=== PATIENT | female | born 1955 | race Caucasian/White ===

== ENCOUNTER → 2017-10-31 18:17 | Outpatient (CLI) | payer OTHER, SELFPAY ==
--- NOTE | 2017-10-31 18:17 | DT_ITS ---
This patient was seen during an EMR downtime October 28, 2017 - November 04, 2017. This patient may have a combination of paper and electronic documentation or all paper documentation. All documentation is viewable within the e-chart portion of [facility] for each patient visit.
== END ==
PROVIDERS: Visit Provider Nurse Practitioner Women's Health
DX: N76.0 Acute vaginitis (principal); R30.0 Dysuria
CPT/HCPCS: 87070; 87086; 87205

== ENCOUNTER → 2017-11-22 14:00 | Outpatient (CLI) | payer OTHER, SELFPAY ==
[2017-11-28 16:13] LABS: HPV APTIMA, High Risk Negative (Negative)
== END ==
PROVIDERS: Family Provider Family Medicine; PCP Family Medicine; Visit Provider Nurse Practitioner Women's Health
DX: Z12.4 Encounter for screening for malignant neoplasm of cervix (principal)
CPT/HCPCS: 88175; G0145

== ENCOUNTER → 2017-12-05 08:20 | Outpatient (CLI) | payer OTHER, SELFPAY ==
--- NOTE | 2017-12-05 08:22 | US_ITS ---
STUDY: ULTRASOUND OF THE FEMALE PELVIS - COMPLETE REASON FOR EXAM: Female, 62 years old. Pelvic pain. LMP: The patient is postmenopausal. TECHNIQUE: Transabdominal and Transvaginal TECHNICAL QUALITY: Adequate. COMPARISON: None. FINDINGS: The uterus is anteverted and is in a midline position. The uterus measures 6.2 cm x 3.8 cm x 2.4 cm. There is a Nabothian cyst of the cervix. The endometrium measures 2.0 mm in thickness, and is hyperechoic. There is no demonstrated endometrial mass. There is no demonstrated myometrial mass. Tiny calcifications are seen in the cervix. This may represent fibroid change. Heterogeneous appearance of the myometrium suggestive of a fibroid change of the luminal focal fibroid is seen. I.U.D. - The patient does not have an I.U.D. The right ovary is visualized. The right ovary measures 2.4 cm x 1.5 cm x 1.3 cm. There is no right ovarian cyst or ovarian mass. There is no visualized right adnexal mass or complex lesion. There is normal arterial and normal venous vascularity. The left ovary is visualized. The left ovary measures 1.6 cm x 1.2 cm x 1.3 cm. There is no left ovarian cyst or ovarian mass. There is no visualized left adnexal mass or complex lesion. There is normal arterial and normal venous vascularity. There is no fluid in the cul-de-sac. Polycystic ovary disease: No. US/Transvaginal Non- IMPRESSION: Findings suggestive of fibroid change within the uterus and cervix. Electronically Signed: Yung Lo MD at 13:01 EDT Tel [phone], Service support ,
--- NOTE | 2017-12-05 08:22 | US_ITS ---
STUDY: ULTRASOUND OF THE FEMALE PELVIS - COMPLETE REASON FOR EXAM: Female, 62 years old. Pelvic pain. LMP: The patient is postmenopausal. TECHNIQUE: Transabdominal and Transvaginal TECHNICAL QUALITY: Adequate. COMPARISON: None. FINDINGS: The uterus is anteverted and is in a midline position. The uterus measures 6.2 cm x 3.8 cm x 2.4 cm. There is a Nabothian cyst of the cervix. The endometrium measures 2.0 mm in thickness, and is hyperechoic. There is no demonstrated endometrial mass. There is no demonstrated myometrial mass. Tiny calcifications are seen in the cervix. This may represent fibroid change. Heterogeneous appearance of the myometrium suggestive of a fibroid change of the luminal focal fibroid is seen. I.U.D. - The patient does not have an I.U.D. The right ovary is visualized. The right ovary measures 2.4 cm x 1.5 cm x 1.3 cm. There is no right ovarian cyst or ovarian mass. There is no visualized right adnexal mass or complex lesion. There is normal arterial and normal venous vascularity. The left ovary is visualized. The left ovary measures 1.6 cm x 1.2 cm x 1.3 cm. There is no left ovarian cyst or ovarian mass. There is no visualized left adnexal mass or complex lesion. There is normal arterial and normal venous vascularity. There is no fluid in the cul-de-sac. Polycystic ovary disease: No. US/Pelvic (Non ) IMPRESSION: Findings suggestive of fibroid change within the uterus and cervix. Electronically Signed: Yung Lo MD at 13:01 EDT Tel [phone], Service support ,
== END ==
PROVIDERS: Family Provider Family Medicine; PCP Family Medicine; Visit Provider Nurse Practitioner Women's Health
DX: N95.2 Postmenopausal atrophic vaginitis (principal)
CPT/HCPCS: 76830; 76856; 93976

== ENCOUNTER → 2018-01-30 14:44 | Outpatient (CLI) | payer OTHER, SELFPAY | PROVIDERS: Family Provider Family Medicine; PCP Family Medicine; Visit Provider Nurse Practitioner Women's Health | DX: Z12.31 Encounter for screening mammogram for malignant neoplasm of breast (principal) | CPT/HCPCS: 77063; 77067 ==

== ENCOUNTER → 2019-02-02 | Outpatient (CLI) | payer OTHER, SELFPAY ==
--- NOTE | 2019-02-02 10:18 | BI_ITS ---
MAMMOGRAPHY - BILATERAL SCREENING REASON FOR EXAM: Female, 63 years old. Routine annual screening examination. PERTINENT HISTORY: Non-contributory. Left breast tenderness. TECHNIQUE: Digital bilateral breast eliazar (3D mammographic acquisition) in the CC and MLO projections. 2-D mediolateral oblique (MLO) and craniocaudad (CC) views of both breasts were obtained. CAD: Full Field Digital Mammography with Computer Added Detection was performed. COMPARISON: Comparison is made with prior study dated January 30, 2018 and April 05, 2016. FINDINGS: Breast Composition: There are scattered areas of fibroglandular density. There are no dominant masses or suspicious calcifications. Stable benign-appearing bilateral axillary lymph nodes. No other significant abnormalities are identified. There has been no significant change since the prior study. BI/SCREEN MAMM (CAD) W/ELIAZAR BILAT IMPRESSION: Stable bilateral screening mammogram. Yearly follow-up mammogram recommended. (A) ASSESSMENT CATEGORY: BIRADS Category 2: Benign. A letter regarding these results will be sent to the patient by the facility within 30 days. Approximately 10% of breast cancers are not detected by mammography. A normal mammogram should not delay biopsy of a clinically suspicious abnormality. [id number] Electronically Signed: Yung Lo, at 12:24 EDT , Service support ,
== END | disposition home or self-care (01) ==
LOC: OPBI 10:16
PROVIDERS: Family Provider Family Medicine; PCP Family Medicine; Referring Provider Nurse Practitioner Women's Health; Visit Provider Nurse Practitioner Women's Health
DX: Z12.31 Encounter for screening mammogram for malignant neoplasm of breast (principal)
CPT/HCPCS: 77063; 77067

== ENCOUNTER → 2020-02-05 | Outpatient (CLI) | payer OTHER, SELFPAY ==
[2019-05-25 12:00] VITALS: BMI 25.1
--- NOTE | 2020-02-05 13:50 | BI_ITS ---
MAMMOGRAPHY - BILATERAL SCREENING REASON FOR EXAM: Female, 64 years old. Routine annual screening examination. PERTINENT HISTORY: Non-contributory. TECHNIQUE: Digital bilateral breast eliazar (3D mammographic acquisition) in the CC and MLO projections. 2-D mediolateral oblique (MLO) and craniocaudad (CC) views of both breasts were obtained. CAD: Full Field Digital Mammography with Computer Added Detection was performed. COMPARISON: Comparison is made with prior examination dated 02/02/2019 and 01/30/2018. FINDINGS: Breast Composition: There are scattered areas of fibroglandular density. There are no dominant masses or suspicious calcifications. Stable small benign appearing bilateral axillary lymph nodes. No other significant abnormalities are identified. BI/SCREEN MAMM (CAD) W/ELIAZAR BILAT IMPRESSION: Stable bilateral screening mammogram. Yearly follow-up mammogram recommended. (A) ASSESSMENT CATEGORY: BIRADS Category 2: Benign. A letter regarding these results will be sent to the patient by the facility within 30 days. Approximately 10% of breast cancers are not detected by mammography. A normal mammogram should not delay biopsy of a clinically suspicious abnormality. [id number] Electronically Signed: Yung Lo, at 14:46 EDT , Service support ,
== END | disposition home or self-care (01) ==
LOC: OPBI 13:50
PROVIDERS: PCP Family Medicine; Referring Provider Obstetrics & Gynecology; Visit Provider Obstetrics & Gynecology
DX: Z12.31 Encounter for screening mammogram for malignant neoplasm of breast (principal)
CPT/HCPCS: 77063; 77067

== ENCOUNTER → 2021-02-06 10:59 | Outpatient (CLI) | payer OTHER, SELFPAY ==
[2020-05-26 11:51] VITALS: BMI 25.6
--- NOTE | 2021-02-06 11:01 | BI_ITS ---
MAMMOGRAPHY - BILATERAL SCREENING REASON FOR EXAM: Female, 65 years old. Routine annual screening examination. PERTINENT HISTORY: Non-contributory. TECHNIQUE: Digital bilateral breast eliazar (3D mammographic acquisition) in the CC and MLO projections. 2-D mediolateral oblique (MLO) and craniocaudad (CC) views of both breasts were obtained. CAD: Full Field Digital Mammography with Computer Added Detection was performed. COMPARISON: Comparison is made with prior study dated 02/05/2020 and 02/02/2019. FINDINGS: Breast Composition: There are scattered areas of fibroglandular density. There are no dominant masses or suspicious calcifications. Stable benign appearing bilateral axillary lymph nodes. No other significant abnormalities are identified. There has been no significant change since the prior study. BI/SCRN MAMM (CAD)W/ELIAZAR BILAT IMPRESSION: Stable bilateral screening mammogram. Yearly follow-up mammogram recommended. (A) ASSESSMENT CATEGORY: BIRADS Category 2: Benign. A letter regarding these results will be sent to the patient by the facility within 30 days. Approximately 10% of breast cancers are not detected by mammography. A normal mammogram should not delay biopsy of a clinically suspicious abnormality. [id number] Electronically Signed: Yung Lo MD at 11:55 EDT , Service support ,
== END ==
PROVIDERS: PCP Family Medicine; Referring Provider Nurse Practitioner Women's Health; Visit Provider Nurse Practitioner Women's Health
DX: Z12.31 Encounter for screening mammogram for malignant neoplasm of breast (principal)
CPT/HCPCS: 77063; 77067

== ENCOUNTER 2021-09-05 15:52 | Outpatient (CLI) | payer OTHER, SELFPAY | END 2021-09-05 23:59 | disposition home or self-care (01) | PROVIDERS: PCP Family Medicine; Referring Provider Nurse Practitioner Women's Health; Visit Provider Nurse Practitioner Women's Health | DX: R30.9 Painful micturition, unspecified (principal); N95.2 Postmenopausal atrophic vaginitis | CPT/HCPCS: 87070; 87086; 87088; 87205 ==

== ENCOUNTER → 2021-10-05 | Outpatient (CLI) | payer OTHER, SELFPAY | END | disposition home or self-care (01) | LOC: LABSPEC 15:27 | PROVIDERS: PCP Family Medicine; Referring Provider Nurse Practitioner Women's Health; Visit Provider Nurse Practitioner Women's Health | DX: R30.0 Dysuria (principal) | CPT/HCPCS: 87086; 87088 ==

== ENCOUNTER → 2021-10-13 | Outpatient (CLI) | payer OTHER, SELFPAY ==
[2021-10-13 18:14] LABS: Bacteria 0 SEEN /hpf (None Seen); Mucous, Urine 0 SEEN /hpf (<or=2+); Red Blood Cells-Urine 0 SEEN /hpf (0-5)
[2021-10-13 18:59] LABS: Color, Urine Yellow (Yellow); Glucose, Dipstick Normal (Normal); Ketone-Dipstick Negative (Negative); Leukocyte Esterase-Dipstick 25 /ul (Negative); Nitrite-Dipstick Negative (Negative); Occult Blood-Urine Negative /ul (Negative); Protein-Dipstick Negative (Negative); Specific Gravity, Urine 1.005 (1.002-1.030); Urine Bilirubin Dipstick Negative (Negative); Urine Clarity Clear (Clear); Urine Urobilinogen Normal (Normal)
[2021-10-13 19:09] LABS: Squamous Epithelial Cells - UA 0-5 SEEN /hpf (5-10); White Blood Cells 0-5 SEEN /hpf (0-5)
== END | disposition home or self-care (01) ==
PROVIDERS: PCP Family Medicine; Visit Provider Physician Assistant Surgical
DX: N39.0 Urinary tract infection, site not specified (principal)
CPT/HCPCS: 81001; 87086; 87088

== ENCOUNTER → 2021-12-18 | Outpatient (CLI) | payer OTHER, SELFPAY ==
[2021-12-18 16:01] LABS: NATERA MAILED SPECIMEN
== END | disposition home or self-care (01) ==
LOC: LAB 14:55
PROVIDERS: PCP Family Medicine; Visit Provider Obstetrics & Gynecology
DX: Z15.09 Genetic susceptibility to other malignant neoplasm (principal)
CPT/HCPCS: 36415

== ENCOUNTER → 2021-12-21 | Outpatient (CLI) | payer OTHER, SELFPAY ==
--- NOTE | 2021-12-21 08:15 | US_ITS ---
STUDY: ULTRASOUND OF THE FEMALE PELVIS - COMPLETE REASON FOR EXAM: Female, 66 years old. Pelvic pain. Preop for hysterectomy. LMP: Patient is postmenopausal. TECHNIQUE: Transabdominal and Transvaginal TECHNICAL QUALITY: Adequate. COMPARISON: Comparison is made with prior study dated 12/05/2017. FINDINGS: The uterus is anteverted and is in a midline position. The uterus measures 6.7 cm x 4 cm x 2.4 cm. Normal uterine cervix. The endometrium measures 2 mm in thickness, and is hyperechoic. There is no demonstrated endometrial mass. Heterogeneous appearance of the myometrium suggestive of fibrotic changes although no focal fibroid is seen. I.U.D. - The patient does not have an I.U.D. The right ovary is visualized. The right ovary measures 2.1 cm x 1.5 cm x 1.6 cm. There is no right ovarian cyst or ovarian mass. There is no visualized right adnexal mass or complex lesion. There is normal arterial and normal venous vascularity. The left ovary is visualized. The left ovary measures 1.8 cm x 2.7 cm x 1 cm. There is no left ovarian cyst or ovarian mass. There is no visualized left adnexal mass or complex lesion. There is normal arterial and normal venous vascularity. There is no fluid in the cul-de-sac. The pre void volume of the bladder was 588 ml. US/Pelvic (Non ) IMPRESSION: Heterogeneous appearance of the myometrium suggestive of fibroid changes although no focal fibroid is seen. Electronically Signed: Yung Lo MD at 14:08 EDT ,
--- NOTE | 2021-12-21 08:15 | US_ITS ---
STUDY: ULTRASOUND OF THE FEMALE PELVIS - COMPLETE REASON FOR EXAM: Female, 66 years old. Pelvic pain. Preop for hysterectomy. LMP: Patient is postmenopausal. TECHNIQUE: Transabdominal and Transvaginal TECHNICAL QUALITY: Adequate. COMPARISON: Comparison is made with prior study dated 12/05/2017. FINDINGS: The uterus is anteverted and is in a midline position. The uterus measures 6.7 cm x 4 cm x 2.4 cm. Normal uterine cervix. The endometrium measures 2 mm in thickness, and is hyperechoic. There is no demonstrated endometrial mass. Heterogeneous appearance of the myometrium suggestive of fibrotic changes although no focal fibroid is seen. I.U.D. - The patient does not have an I.U.D. The right ovary is visualized. The right ovary measures 2.1 cm x 1.5 cm x 1.6 cm. There is no right ovarian cyst or ovarian mass. There is no visualized right adnexal mass or complex lesion. There is normal arterial and normal venous vascularity. The left ovary is visualized. The left ovary measures 1.8 cm x 2.7 cm x 1 cm. There is no left ovarian cyst or ovarian mass. There is no visualized left adnexal mass or complex lesion. There is normal arterial and normal venous vascularity. There is no fluid in the cul-de-sac. The pre void volume of the bladder was 588 ml. US/Transvaginal Non- IMPRESSION: Heterogeneous appearance of the myometrium suggestive of fibroid changes although no focal fibroid is seen. Electronically Signed: Yung Lo MD at 14:08 EDT ,
== END | disposition home or self-care (01) ==
LOC: US 08:13
PROVIDERS: PCP Family Medicine; Referring Provider Obstetrics & Gynecology; Visit Provider Obstetrics & Gynecology
DX: R10.2 Pelvic and perineal pain (principal); Z78.0 Asymptomatic menopausal state
CPT/HCPCS: 76830; 76856; 93976

== ENCOUNTER 2022-01-12 07:22 | Observation (INO) | payer OTHER, MEDICARE, SELFPAY ==
--- NOTE | 2022-01-08 07:25 | EKG12_ITS ---
Test Reason : PRE OP Blood Pressure : / mmHG Vent. Rate : 060 BPM Atrial Rate : 060 BPM P-R Int : 144 ms QRS Dur : 076 ms QT Int : 376 ms P-R-T Axes : 074 060 058 degrees QTc Int : 376 ms Normal sinus rhythm Normal ECG Confirmed by SOLITARIO MENDIOLA, STEFANIA ([id number]), image editor JOSE CADENA ([id number]) on 01/08/2022 10:23:42 AM Referred By: Zena Em Confirmed By:STEFANIA JEREZ MD
[2022-01-08 08:17] LABS: Absolute Lymphocyte Count 1.05 X10^3/uL (0.83-4.51); Absolute Neutrophil Count 2.7 X10^3/uL (2.0-7.7); Basophil# 0.03 X10^3/uL; Basophil% 0.7 % (0-1); Eosinophil# 0.08 X10^3/uL; Eosinophils% 1.9 % (0-5); Hematocrit 42.7 % (37-47); Hemoglobin 13.9 g/dL (12.0-15.0); Lymphocyte # 1.05 X10^3/ul (0.83-4.51); Lymphocyte % 24.8 % (19-41); Mean Corp Hgb Conc 32.6 g/dL (32-36); Mean Corpuscular Hgb 30.9 pg (27.0-32.0); Mean Corpuscular Volume 94.9 fL (81-99); Mean Platelet Vol. 10.5 fl (6.2-12.0); Monocyte# 0.39 X10^3/uL; Monocyte% 9.2 % (0-10); NRBC Flagged by Analyzer 0 % (0-5); Neutrophil # 2.68 X10^3/uL (2.7-7.7); Neutrophil % 63.2 % (47-70); Platelet Count 218 K/mm3 (150-450); RBC Distribution Width CV 12.8 % (11.6-14.6); RBC Distribution Width SD 44.3 fl (35.1-43.9); White Blood Count 4.2 K/mm3 (4.4-11.0)
[2022-01-08 08:38] LABS: Magnesium 2.5 mg/dL (1.6-2.6)
[2022-01-08 08:47] LABS: ALB/GLOB Ratio 1.1 RATIO (0.9-2.4); AST(SGOT) 19 U/L (15-37); Alanine Aminotransfer ALT/SGPT 37 U/L (13-56); Albumin, Serum 3.5 g/dL (3.2-5.0); Alkaline Phosphatase 123 U/L (45-117); Anion Gap 4 (5-15); BUN 12 mg/dL (7-18); BUN/Creat Ratio 19.3 RATIO (10-20); Calcium,Total 8.8 mg/dL (8.5-10.1); Chloride 106 mmol/L (98-107); Creatinine, Serum 0.62 mg/dL (0.55-1.02); EST Glomerular Filtration Rate 102 mL/min (>60); Est Glom Filt Rate - Afr Amer 123 mL/min (>60); Globulin 3.3 g/dL (2.2-4.2); Glucose 88 mg/dL (74-106); Potassium 3.7 mmol/L (3.5-5.1); Protein, Total 6.8 g/dL (6.4-8.2); Sodium Level 139 mmol/L (136-145)
[2022-01-12] VITALS (14 sets, daily range): BP systolic 93–129; BP diastolic 50–77; PULSE 50–70; RESP 12–16; TEMP 35.7–37.1; O2SAT 94–100; BMI 21.6
[2022-01-12] MEDS: Lactated Ringers 1,000 ML 40 ML IV (06:09)
[2022-01-12] MEDS: Enoxaparin 40 MG/0.4 ML Syringe SC (06:09)
[2022-01-12] MEDS: Celecoxib 200 MG Capsule 400 MG PO (06:10)
[2022-01-12] MEDS: Acetaminophen 500 MG Tablet 1000 MG PO ×3 (06:10→18:11)
[2022-01-12] MEDS: Gabapentin 600 MG Tablet PO (06:10)
[2022-01-12] MEDS: Scopolamine 1mg/72hr Patch 1 PATCH TD (06:11)
--- NOTE | 2022-01-12 06:40 | HP.PCM_ITS ---
HPI - General HPI Narrative SYLVIA PRICE, is a 66 F who presents for surgical intervention for pelvic organ prolapse and urinary incontinence. She has undergone cystoscopy and urodynamics in the office and informed consent has been obtained. [facility] Medical History (Updated 01/12/22 @ 06:[address] Kae Larios MD) Abrasion Arthritis Bladder disease Gastric reflux Genetic testing of female Hepatitis Hiatal hernia History of diverticulitis History of IBS Low iron Non-smoker steroid injection in knee Stress incontinence Wears dentures Wears glasses Wears partial dentures Home Medications B-complex with vitamin C 1 tab PO QDAY 11/22/17 [History Last Taken Unknown] multivitamin,[id number] (Complete Multivitamin tablet) 1 tab PO QDAY 11/22/17 [History Last Taken Unknown] famotidine 20 mg tablet 20 mg PO BID 05/25/19 [History Last Taken 01/12/22 06:12] acyclovir 400 mg tablet 200 mg PO BID PRN Cold Sores 08/07/21 [History Last Taken Unknown] estradiol 0.01% (0.1 mg/gram) vaginal cream 0.1 appful vaginal TUTH 01/05/22 [History Last Taken Unknown] simethicone 80 mg chewable tablet 80 mg PO PRN PRN Gastric Reflux 01/05/22 [History Last Taken Unknown] Allergy/AdvReac Type Severity Reaction Status Date / Time ibuprofen [From Motrin] AdvReac Mild Upset Verified 01/12/22 06:12 Stomach Family History Mother Cancer uterine Sister Diabetes Lupus Father Heart disease Brother Cancer prostate colon Son [place] sarcoma Aunt Breast cancer Surgical History H/O tubal ligation History of ovarian cystectomy History of tonsillectomy Hx of cholecystectomy Hx of colonoscopy Social History Smoking Status: Never smoker alcohol intake: never substance use type: does not use caffeine: No what type of physical activity do you participate in: walking frequency: daily seatbelt use: always do you feel safe at home: Yes additional social history: [employer]- Retired Patient works at [employer] Constitutional Constitutional: Denies chills, fatigue or fever(s) Eyes Eyes: Reports systems reviewed and no addt'l complaints, except as documented ENT HEENT: Reports systems reviewed and no addt'l complaints, except as documented Cardiovascular Cardiovascular: Denies abdominal pain, chest pain, diaphoresis, dizziness or dyspnea Respiratory/Chest Respiratory/Chest: Denies chest tightness, cough, dyspnea or inability to speak Gastrointestinal Gastrointestinal: Denies abdominal pain, nausea or vomiting Genitourinary Genitourinary: Reports urinary incontinence; Denies abdominal discomfort, burning urination, dysuria, flank pain or hematuria Musculoskeletal Musculoskeletal: Reports systems reviewed and no addt'l complaints, except as documented Integumentary Integumentary: Reports systems reviewed and no addt'l complaints, except as documented Neurologic Neurologic: Reports systems reviewed and no addt'l complaints, except as documented Psychiatric Psychiatric: Reports systems reviewed and no addt'l complaints, except as documented Endocrine Endocrinology: Reports systems reviewed and no addt'l complaints, except as d ocumented Hematologic/Lymphatic Hematologic/Lymphatic: Reports systems reviewed and no addt'l complaints, except as documented Allergic/Immunologic Allergic/Immunologic: Reports systems reviewed and no addt'l complaints, except as documented Vital Signs Vital Signs Vital Signs: 01/12/22 06:21 01/12/22 06:21 Temperature 97.3 F L Temperature Source Temporal Pulse Rate 57 L Respiratory Rate 16 Respiratory Pattern Normal Blood Pressure 129/77 H Blood Pressure Mean 94 Blood Pressure Source Monitor Blood Pressure Position Semi-Fowlers Blood Pressure Location Right Arm Pulse Ox 100 Oxygen Delivery Method Room Air Weight Weight: 55.338 kg Body Mass Index (BMI) 21.6 Physical Exam Const alert, oriented x3 and no apparent distress General Appearance: cooperative, comfortable, well kempt and well developed HEENT normocephalic, head/scalp atraumatic, hearing grossly normal bilaterally, external ears normal and external nose normal Eyes General Eye: normal appearance of both eyes Neck supple General: trachea midline Lymph Lymphatic: no lymphedema noted Chest inspection of chest normal Chest: symmetrical chest wall rise Resp normal respiratory effort, normal air movement, no retractions and no use of accessory muscles Effort and Inspection: able to speak in complete sentences and symmetric chest movement Cardio regular rate and regular rhythm GI soft to palpation, non-tender and non-distended no CVA tenderness Back/Spine no CVA tenderness Extremity normal to inspection General Extremity: normal exam except as noted Skin no rashes or lesions noted, no wounds, skin turgor normal, no jaundice, no petechiae and no mottling Neuro oriented x3, CN's II-XII intact bilaterally and moves all extremities Psych mental status grossly normal, thought process normal, cooperative and affect normal Results Lab / Micro Data Result Diagrams: 01/08/22 07:40 01/08/22 07:40 Assessment & Plan Assessment/Plan (1) Cystocele: QUALIFIERS: Cystocele location: midline Qualified Code(s): N81.11 - Cystocele, midline (2) Atrophic vaginitis: (3) Stress incontinence: PLAN: Plan proceed with surgical intervention, anterior repair with dermis, bilateral sacrospinous ligament fixation, midurethral sling, cystoscopy Procedure Criteria Type of Procedure Procedure Type: Elective Elective Risks - COVID COVID Risk Discussion: The surgeon/proceduralist and patient have discussed in detail the risk of exposure to and/or potential harm posed by the COVID-19 virus with having a surgery/procedure at this time versus the risk of delaying the surgery/procedure. It is not possible to know either the risk of delaying the surgery or procedure or chance of getting an infection with perfect accuracy, but a joint decision was made between the patient and the surgeon/proceduralist to proceed at this time with the scheduled surgery/procedure as indicated on the consent form.
[2022-01-12 07:11] LABS: Bedside Glucose 92 mg/dL (74-106)
--- NOTE | 2022-01-12 07:21 | HP.PCM_ITS ---
History and Physical Intake Vital Signs ? 12/18/2212:57 12/18/2212:59 Height 5 ft 3 in 5 ft 3 in Weight: 128 lb ? BMI 22.6 ? BP 132/80 H ? 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 Is patient in pain?: No Allergies ibuprofen [From Motrin] Allergy (Mild, Verified 10/13/21 17:19) Upset Stomach Medications B-complex with vitamin C 1 tab PO QDAY 11/22/17 [History Confirmed 12/18/21] fiber cap PO 11/22/17 [History Confirmed 12/18/21] multivitamin,ht-jzwd-snyjktkr (Complete Multivitamin tablet) 1 tab PO QDAY 11/22/17 [History Confirmed 12/18/21] estradiol 0.01% (0.1 mg/gram) vaginal cream See Rx Instructions vaginal 2XW #42.5 grams 05/25/19 [Rx Confirmed 12/18/21] famotidine 20 mg tablet 20 mg PO DAILY 05/25/19 [History Confirmed 12/18/21] acyclovir 400 mg tablet 400 mg PO BID PRN 08/07/21 [History Confirmed 12/18/21] Is last menstrual period known: No Post menopausal: Yes Patient : No : No PFSH Medical History? Arthritis Hiatal hernia steroid injection in knee Surgical History? H/O tubal ligation History of right oophorectomy History of tonsillectomy Hx of cholecystectomy Family History?(Updated 12/18/21 @ 14:14 by Татьяна Mejia) Mother Cancer ?? ? uterineSister Diabetes LupusFather Heart diseaseBrother Cancer ?? ? prostate ?? ? colonSon [place] sarcomaAunt Breast cancer Social History? Smoking Status:? Never smoker alcohol intake:? never substance use type:? does not use caffeine:? No what type of physical activity do you participate in:? walking frequency:? daily seatbelt use:? always do you feel safe at home:? Yes additional social history:? Herrera- Retired Patient works at [employer] PRE-OP / CONSULT TIM CONSULT Details: SYLVIA PRICE is a 66 year old who presents for consultation for hysterectomy and pelvic floor repair.? she has been treated with a pessary in the past and it didn't manage the symptoms completely and she had bladder irritability and tried oxybutinin for a while but had significant retention with it.? she has now seen the urogynecologist and is prepared for surgical management. she feels a bladder bulge vaginal pressure and discomfort, worsens with activity.? she denies any bleeding or abnormal discharge. Female Reproductive History Menopausal Symptoms: Yes night sweats Pregancy History ? ? ? 2 ? Elective abortions ? Hx Para ? ? ? 2 ? Spontaneous abortions ? Hx # Term Pregnancies ? Ectopic pregnancies ? Hx # Pregnancies ? Multiple births ? # of living children ? Past Pregnancies Del. Date Name GA/Weeks Outcome Route Bth Weight Gen Labor Lgth Anesthesia Del Locatn Provider FOB Unknown 1978 Carl ? Unknown 1982 Alba ? ROS Const Constitutional: Reports night sweats Eyes Eyes: Denies system reviewed and no additional complaints, except as documented, as per HPI, blurry vision, change in vision, diplopia, dry eyes, irritation, loss of peripheral vision, photophobia, spots in vision or other ENT ENT: Reports system reviewed and no additional complaints, except as documented Cardio Card: Denies chest pain Resp Resp: Denies cough or dyspnea GI GI: Denies abdominal pain, bloating, change in stool character, constipation, fecal incontinence, nausea or vomiting : Reports prolapse symptoms, urinary incontinence and vaginal dryness; Denies pelvic pain, sexual dysfunction, urinary frequency, urinary urgency, vaginal discharge, vaginal odor or vaginal pruritus Musc Musc: Denies arthralgias, back pain or muscle weakness Skin Skin/Breast: Denies system reviewed and no additional complaints, except as documented, as per HPI, acne, alopecia, change in hair, nail changes, change in pigmentation, changing lesions, dry skin, hirsutism, jaundice, lesions, new lesions, pruritus, rash, sores, breast mass, breast pain, breast skin changes or other Neuro Neuro: Reports system reviewed and no additional complaints, except as documented Psych Psych: Denies anxiety or depression Endo Endo: Denies cold intolerance, excessive sweating, heat intolerance or polydipsia Woody/Lymph Hematologic/Lymphatic: Denies system reviewed and no additional complaints, except as documented, Denies as per HPI, Denies easy bleeding, Denies easy bruising, Denies lymphadenopathy and Denies other Exam Const General: cooperative, healthy appearing, no acute distress and well developed Orientation: alert, oriented to person and oriented to place [facility] Head: normal to inspection Ears: hearing grossly normal bilaterally and external ears normal Nose: external nose normal and nares normal Face and sinus: normal facial exam Neck Neck: normal visual inspection Thyroid: thyroid normal Lymphatic: no lymphadenopathy noted Chest Chest palpation & inspection: normal inspection of the chest Breast inspection: normal inspection of the breasts and normal inspection of the axillae Breast palpation: normal palpation of the breasts, normal palpation of the axillae and no axillary lymphadenopathy Resp Effort & Inspection: normal respiratory effort Auscultation: clear to auscultation bilaterally Cardio Rate: regular rate Rhythm: regular rhythm Heart Sounds: S1 normal and S2 normal GI Inspection: normal to inspection and non-distended Palpation: soft, no masses and nontender Rectal Exam: deferred General: bladder normal to palpation External Female Exam: normal external appearance and normal appearance of the urethra Urethra: normal appearance of the urethra and normal palpation Speculum Exam - Vagina: normal vaginal discharge and vagina atrophic Speculum Exam - Cervix: normal appearance of the cervix Bimanual Exam- Vagina & Uterus: normal bimanual exam, uterine size normal, bladder normal to palpation, uterine shape normal and non-tender Bimanual Exam- Adnexa, other: normal adnexae, no masses, non-tender, enterocele (grade III), cystocele and vaginal apex descent (grade III) Pelvic Support: cystocele moderate (grade III), enterocele (grade III) and vaginal apex descent (grade III) Musc Other: gross motor intact no deficits, full bilateral strength Skin General: no rashes or lesions noted and atrophy Neuro General: patient alert and patient oriented x3 Motor: muscle tone normal throughout Extrem General: normal to inspection and no pedal edema Psych Appearance: grossly normal Mental Status: mental status grossly normal Affect: normal affect Speech and Movement: speech and movement normal Coding Level of Care Code Off vis,est,level 5 Diagnoses Cystocele? N81.11 ? ? ? Cystocele location: midline Atrophic vaginitis? N95.2 Assessment and Plan Assessment and Plan (1) Cystocele: ?Status:?Chronic ?Qualifiers: ?Cystocele location:?midline? Qualified Code(s):?N81.11 - Cystocele, midline ?Comment: #4 ring pessary with support/not in place. (2) Atrophic vaginitis: ?Status:?Chronic ?Comment: estradiol cream ? ? ? Orders: Orders Pelvic (Non ) Today R10.2 - Pelvic and perineal pain ? Transvaginal Non- Today R10.2 - Pelvic and perineal pain ? Plan After discussing the patient's diagnosis and treatment plan options, patient wishes to proceed with surgical management.? I have discussed with the patient the risks, benefits, and alternatives of the procedure which include but are not limited to risks of anesthesia, bleeding, infection, possible damage to bowel, bladder, or surrounding vasculature which could lead to additional surgery to evaluate any complications.? Patient agrees to procedure and wishes to proceed.? ACOG/uptodate references given for additional information regarding procedure.? UPDATE- I have seen the patient and performed any clinically relevant updates to the history and physical exam. Zena Em MD
--- NOTE | 2022-01-12 07:22 | PCM.OPRPT ---
Problems Associated Problem List Diagnoses (1) Stress incontinence: (2) Cystocele: (3) Atrophic vaginitis: (4) Genetic testing of female: (5) History of total vaginal hysterectomy (TVH): Report of Operation Date of Procedure: 01/12/22 Pre-Operative Diagnosis: see PL Post-Operative Diagnosis: same Surgery/Procedure Performed:: TVH RSO Description of Surgical Findings:: nl uterus tubes ovaries left adnexal scar tissue Surgeon: Zena Em fiscal assistant: Linda Fiore Type of Anesthesia: General Special Medications: gabriel Specimen's removed: uterus, right tube and ovary Drains: crawford Estimated Blood Loss (mL): 200 Fluids Replaced: crystalloid Description of Procedure: Patient was taken to the operating room and was placed under general anesthesia was prepped and draped in normal sterile fashion in the dorsal lithotomy position. Preoperative antibiotics and SCDs and Crawford catheter was placed inside the bladder. Weighted speculum was placed in the vagina and the anterior and posterior lip of the cervix was grasped with 2 Giselle clamps and circumferentially injected with dilute vasopressin. A circumferential incision was made with a scalpel and the posterior cul-de-sac was entered into sharply and a longneck speculum was placed. The anterior cul-de-sac was also dissected down and entered into sharply and the uterosacral ligaments were clamped cut and suture ligated bilaterally followed by the cardinal ligaments which were Clamped cut and suture ligated bilaterally with 0 Monocryl. The uterus serially descended and progressive bites were taken bilaterally up to the level of the utero-ovarian ligament bilaterally which was clamped transected and double ligated with 0 Monocryl suture and 0 Vicryl free tie. left adnexa had epiploic scar tissue that was taken down sharply and hemostasis achieved with some gabriel. ovary WNL but unable to be removed due to scar tissue. right fallopian tube and ovary was visualized and noted be within normal limits and the IP ligament was transected across the base with a connie clamp, then removed and the pedicle double ligated with O monocryl and 0 vicryl. Excellent hemostasis was noted. The vagina was closed with [id number] 0 Vicryl pop offs including the posterior and anterior peritoneum in the reapproximation. Excellent hemostasis was noted. Then Dr. Larios began her portion of the procedure. Grafts/Implants Used: none Complications none Admit VTE Documentation VTE Present on Admission: No VTE Mechan Device Prophylaxis: SCD's VTE Pharm Prophylaxis ordered?: Yes Multi Select Codes Urinary/Genital Urinary/Genital CPT Codes: 24305 TVH+BS/O <250gr uterus
[2022-01-12] MEDS: Cefazolin 2 GM in 0.9% Normal Saline 100 ML IV (07:25)
--- NOTE | 2022-01-12 07:30 | HYST_PTH ---
PATIENT: SYLVIA PRICE LOC: MS3 U#:[id number] AGE/SX: 66/F [place] [facility] [place]: Dr. Zena Em MD : 1955 BED: 1 DIS: 01/13/2022 SPEC #: [id number] RECD: 01/12/22 11:05 STATUS: ELIZABETH GOMEZ #: [id number] DRAKE: 01/12/22 07:[address]: Zena Em DEPT: SURGICAL PATHOLOGY RECD BY: Socorro Gillespie ENTERED: 01/12/22 12:11 SP TYPE: HYSTERECT OTHR DR: MD Dr. Karthik Beck MD Tissues: Uterus, NOS Procedures: Surgery Specimen Level V HEADER OPERATION: ERAS, hysterectomy, vaginal, right salpingo-oophorectomy PRE-OP DIAGNOSIS: Cystocele, atrophic vaginitis TISSUE SUBMITTED: Uterus and right sided fallopian tube and ovary MICROSCOPIC DIAGNOSIS Uterus, hysterectomy: Cervix ? nabothian cysts, squamous metaplasia and mild chronic inflammation. Endometrium ? focal simple and complex hyperplasia without atypia. Benign endometrial polyp with simple hyperplasia without atypia. Myometrium ? adenomyosis. Right ovary ? corpora albicantia and serous cystadenoma. Tubo-ovarian adhesions. AM:livan 01/16/2022 COMMENT Case has been reviewed in consultation with Dr. Phillips who concurs with the above diagnosis. IDC:SJ MICROSCOPIC DESCRIPTION Slides are reviewed. GROSS DESCRIPTION Received in fixative is one container labeled with the patient's name and designated uterus and right fallopian tube and ovary. The specimen consists of a hysterectomy specimen consisting of uterus with cervix and detached right fallopian tube and ovary. The uterus with cervix weighs 65 gm and measures 9 x 5 x 3 cm. The serosal surface is spears, glistening. The ectocervical mucosa is unremarkable. The external os is oval in contour. The endocervical canal measures 3 cm in length. The endocervical mucosa is spears, glistening and unremarkable. The triangular endometrial cavity measures 4 cm in length and 2 cm in width. Two polyps are noted in the anterior uterine wall measuring 0.5 and 0.7 cm in greatest dimension. Sections of the uterine wall do not reveal any mass lesion and measures 1.5 cm in thickness. Separately received ovary identified as right measures 3 x 2 x 1 cm. Small portion of fallopian tube is attached to ovary measuring 1.5 cm in length and 0.5 cm in diameter. Sections of the ovary reveal a cyst measuring 1 cm in greatest dimension. Sections of fallopian tube do not reveal any mass lesion. Fimbrial end is identified. Experiential Therapist sections are submitted in ten cassettes as follows: 1 - anterior cervix, 2??posterior cervix, 3 & 4 - anterior uterine wall, 5 & 6 - posterior uterine wall, 7 - endometrial polyps with underlying uterine wall, 8 & 9 - fallopian tube and ovary, 10 - more sections of ovary. / SJ:livan 01/12/2022 Additional sections are submitted in three cassettes (11-13) as follows: remainder of endometrium with adjacent myometrium. / TEVIN:livan 01/15/2022 TC:5 CPT: 35802
--- NOTE | 2022-01-12 07:32 | DCINST_ITS ---
Discharge Instructions Procedure Hysterectomy, Vaginal Diet Discharge Diet: No restrictions Activity Discharge Activity: Return to Normal Activity, May Not Drive (while taking narcotic pain medications.) and May Shower May resume sexual activity in: 6-8 weeks Dressing / Incision Call your doctor if your incision/area has: Continuous Slow Oozing, Sudden Increased Bleeding, Increased Pain/ Swelling, Increased Redness and Foul Smelling Discharge Call your doctor if you observe: Fever of 101 or Higher, Inability to urinate, Inability to have a bowel movement and Using more than 1 pad per hour Follow Up Care Please Follow Up With: Zena Em MD Test Results: Test results from this visit will be discussed in further detail at your follow- up appointment, if applicable. Discharge Plan Admission Attending Provider: Zena Em Primary Care Provider: Karthik Duque Consulting Providers: Kae Larios Discharge Orders/Prescriptions Prescriptions: New oxycodone-acetaminophen [Percocet] 5-325 mg tablet 1 tab PO Q6H PRN (Reason: pain) 7 Days Qty: 20 0RF Continued multivitamin,hk-cyrv-luzujcuh tablet tablet 1 tab PO QDAY B-complex with vitamin C tablet 1 tab PO QDAY acyclovir 400 mg tablet 200 mg PO BID PRN (Reason: Cold Sores) famotidine 20 mg tablet 20 mg PO BID simethicone 80 mg Tablet,Chewable 80 mg PO PRN PRN (Reason: Gastric Reflux) estradiol 0.01 % (0.1 mg/gram) cream 0.1 appful VAGINAL TUTH Referrals / Follow Up: Karthik Duque MD [Primary Care Provider] - Disposition Disposition (needs filled in before D/C Order can be placed): Home, Self Care
--- NOTE | 2022-01-12 08:11 | OP.PCM_ITS ---
Report of Operation Date of Procedure: 01/12/22 Pre-Operative Diagnosis: Incomplete uterovaginal prolapse, stress urinary incon tinence Post-Operative Diagnosis: Same Surgery/Procedure Performed:: Anterior repair with dermis, bilateral sacrospinous ligament fixation, mid urethral sling insertion, cystourethroscopy with bilateral ureteral catheterization Surgeon: Kae Larios Type of Anesthesia: General Specimen's removed: None Drains: Malik catheter Estimated Blood Loss (mL): 25 cc Description of Procedure: The patient is a 66-year-old female with pelvic organ prolapse and incontinence who presented to the office for surgical intervention. She underwent testing in the office for full evaluation and informed consent was obtained. She was taken to the operating room and placed on the operating room table. She was appropriately padded and secured to the table. Anesthesia monitored the head, neck, airway, IV access and vital signs throughout the case. Once anesthesia was appropriate ministered the patient was placed into exaggerated dorsal lithotomy in Trendelenburg position. She was prepped and draped in usual sterile fashion. A Malik catheter was inserted to straight drain. Dr. Em performed her portion of the procedure and the case was turned over to az. The anterior vaginal wall was isolated and injected submucosally for hydrostatic dissection and hemostatic control. A midline vertical midline incision was made approximately 2 cm in length. Sharp and blunt dissection was performed on both sides until the ischial spines were clearly palpable and the sacrospinous ligaments were freed from surrounding tissues. At this time a Capio device was used to pass an Ethibond suture through the sacrospinous ligaments bilaterally. The sutures were then brought through the dermis and through the full-thickness vaginal mucosa. The dermis was attached with 2-0 Vicryl sutures to the vaginal apex and also laterally to the white line and distally to the tissues around the bladder neck. Once the dermis was in position and all sutures were tied down, the midline incision was closed using running interlocking 2-0 Vicryl. The Ethibond sutures were then tied into position reducing the prolapse. At this time the Malik catheter was deflated and removed, the patient was flattened and the cystoscope was inserted through the urethra under direct visualization. Of note, the urethra continuously leaked urine after removal of the Malik and the decision was made to place the mid urethral sling in a more proximal location. The bladder mucosa was visualized in its entirety and found to be without evidence of hemorrhage, foreign body, injury or mass. The right ureteral orifice was carefully intubated with a 5 Guyanese whistle-tip catheter which was easily advanced to 20 cm without evidence of injury or obstruction. On the patient's left side, the ureter seem to be J hooked distally. A Pollick catheter and a wire were used for intubation and the Pollick catheter was able to be easily advanced to 20 cm without evidence of obstruction or injury. At this time the cystoscope was removed, Malik catheter was reinserted and the patient was returned to exaggerated dorsal lithotomy in Trendelenburg position. Attention was then turned towards the urethra which was isolated and injected submucosally. A vertical incision was made approximately 1.5 cm in length. Sharp and blunt dissection was performed on either side of the urethra with care being taken to avoid entry into the urethra or the vaginal mucosa. The vaginal mucosa was very thin specifically on the patient's right side and a small rent was made and repaired using 2-0 Vicryl. Using the trochars provided, the sling was inserted into the transobturator complexes bilaterally. It did not transverse the vaginal mucosa where the rent occurred. It was positioned using the tensioning suture which was then cut. The sling lay flat against the urethra without excess tension. The midline incision was closed using running interlocking 2-0 Vicryl. At this time the patient was flattened, the Malik catheter was removed. The cystoscope was then inserted through the urethra under direct visualization into the urinary bladder. The urethra remained intact in the area of the mid urethral sling was able to be identified. There is no entrance into the urinary bladder with any foreign object. At this time the cystoscope was removed and the Malik catheter was replaced without difficulty and left to straight drain. The vagina was then packed with estrogen cream and vaginal packing. The patient was awakened and taken to the recovery room in good condition. There were no complications during this procedure. Grafts/Implants Used: dermis, midurethral sling Complications None Admit VTE Documentation VTE Present on Admission: Yes VTE Mechan Device Prophylaxis: SCD's VTE Pharm Prophylaxis ordered?: Yes
--- NOTE | 2022-01-12 08:22 | DCINST_ITS ---
Discharge Instructions Diet Discharge Diet: No restrictions Activity Discharge Activity: May Shower May resume sexual activity in: 8 weeks Additional Activity Instructions:: No swimming, no tub bathing, no hot tubs, no sexual activity, no exercise or strenuous activity, no lifting over 5 pounds Dressing / Incision Call your doctor if your incision/area has: Continuous Slow Oozing, Sudden Increased Bleeding, Increased Pain/ Swelling, Increased Redness and Foul Smelling Discharge Call your doctor if you observe: Fever of 101 or Higher, Inability to urinate, Inability to have a bowel movement and Using more than 1 pad per hour Follow Up Care Please Follow Up With: Zena Em MD When: with in the office, call for appt Test Results: Test results from this visit will be discussed in further detail at your follow- up appointment, if applicable. Discharge Plan Admission Admit Date/Time: 01/12/22 07:22 Attending Provider: Zena Em Primary Care Provider: Karthik Duque Consulting Providers: Kae Larios Discharge Orders/Prescriptions Prescriptions: New oxycodone-acetaminophen [Percocet] 5-325 mg tablet 1 tab PO Q6H PRN (Reason: pain) 7 Days Qty: 20 0RF cephalexin [cephalexin] 500 mg capsule 500 mg PO Q12 3 Days Qty: 6 0RF Continued multivitamin,vb-alli-ofihkfqn tablet tablet 1 tab PO QDAY B-complex with vitamin C tablet 1 tab PO QDAY acyclovir 400 mg tablet 200 mg PO BID PRN (Reason: Cold Sores) famotidine 20 mg tablet 20 mg PO BID simethicone 80 mg Tablet,Chewable 80 mg PO PRN PRN (Reason: Gastric Reflux) estradiol 0.01 % (0.1 mg/gram) cream 0.1 appful VAGINAL TUTH Referrals / Follow Up: Karthik Duque MD [Primary Care Provider] -
[2022-01-12] MEDS: Lactated Ringers 1,000 ML 15 ML IV (10:00)
[2022-01-12] MEDS: Vasopressin 20 UNITS/ML Vial (10:00)
[2022-01-12] MEDS: Estrogens,Conj. 1 Tube 1 DOSE (10:18)
[2022-01-12] MEDS: Famotidine 20 MG Tablet PO ×2 (13:03→20:54)
[2022-01-12] MEDS: Docusate Sodium 100 MG Capsule PO ×2 (13:04→20:54)
[2022-01-12] MEDS: 0.9% Saline Lock 10 ML Syringe IV ×2 (15:25→16:46)
[2022-01-12] MEDS: Ketorolac 30 MG/ML Syringe IV (16:46)
[2022-01-12] MEDS: oxyCODONE 5 MG Tablet PO (18:11)
[2022-01-12] MEDS: Ondansetron ODT 4 MG Tablet PO (18:11)
[2022-01-12] MEDS: Cephalexin 500 MG Capsule PO (20:54)
[2022-01-13] MEDS: Ketorolac 30 MG/ML Syringe IV ×3 (00:18→12:42)
[2022-01-13] MEDS: Acetaminophen 500 MG Tablet 1000 MG PO ×3 (00:18→12:42)
[2022-01-13] MEDS: 0.9% Saline Lock 10 ML Syringe IV ×2 (00:20→12:43)
[2022-01-13 04:00] VITALS: BP 97/56; PULSE 57; RESP 12; TEMP 36.7; O2SAT 99
[2022-01-13 06:29] LABS: Hematocrit 36.7 % (37-47); Hemoglobin 12.3 g/dL (12.0-15.0); Mean Corp Hgb Conc 33.5 g/dL (32-36); Mean Corpuscular Hgb 31.7 pg (27.0-32.0); Mean Corpuscular Volume 94.6 fL (81-99); Mean Platelet Vol. 11.1 fl (6.2-12.0); Platelet Count 184 K/mm3 (150-450); RBC Distribution Width CV 12.6 % (11.6-14.6); RBC Distribution Width SD 43.8 fl (35.1-43.9); Red Blood Count 3.88 M/mm3 (4.2-5.4); White Blood Count 9.2 K/mm3 (4.4-11.0)
[2022-01-13 07:03] VITALS: O2SAT 100
--- NOTE | 2022-01-13 07:57 | PCM.PN.GU ---
Subjective Subjective Did well overnight, no issues. Objective Data Objective Data Vital Signs: Vital Signs Temp Pulse Resp BP Pulse Ox O2 Del Method O2 Flow Rate 98.0 F 57 L 12 97/56 L 99 Room Air 4 01/13/22 04:00 01/13/22 04:00 01/13/22 04:00 01/13/22 04:00 01/13/22 04:00 01/13/22 04:00 01/12/22 12:16 Oxygen Flow Rate (L/min) 4 Oxygen Delivery Method Room Air Weight: 55.338 kg Body Mass Index (BMI) 21.6 Intake & Output: Intake and Output for Last 24 Hours 01/11/22 01/12/22 01/13/22 23:59 23:59 23:59 Intake Total 1293 / 1893 900 / 900 Output Total 1500 / 2700 1750 / 1750 Balance -207 / -807 -850 / -850 Lab / Micro Data Result Diagrams: 01/13/22 05:15 01/08/22 07:40 Labs: Laboratory Results - last 24 hr 01/13/22 05:15: WBC 9.2, RBC 3.88 L, Hgb 12.3, Hct 36.7 L, MCV 94.6, MCH 31.7, MCHC 33.5, RDW Std Deviation 43.8, RDW Coeff of Ramy 12.6, Plt Count 184, MPV 11.1 Physical Exam Const alert, oriented x3 and no apparent distress General Appearance: cooperative and comfortable GI soft to palpation, non-tender and non-distended Narrative: Malik catheter and vaginal packing were removed without incident Assessment & Plan Assessment/Plan (1) History of total vaginal hysterectomy (TVH): (2) Stress incontinence: (3) Cystocele: QUALIFIERS: Cystocele location: midline Qualified Code(s): N81.11 - Cystocele, midline (4) Atrophic vaginitis: PLAN: Plan Trial of void today Supportive residential later today
[2022-01-13 09:25] VITALS: BP 111/64; PULSE 65; RESP 16; TEMP 36.8; O2SAT 99
[2022-01-13] MEDS: Enoxaparin 40 MG/0.4 ML Syringe SC (09:27)
[2022-01-13] MEDS: Docusate Sodium 100 MG Capsule PO (09:27)
[2022-01-13] MEDS: Famotidine 20 MG Tablet PO (09:27)
[2022-01-13] MEDS: Cephalexin 500 MG Capsule PO (09:27)
[2022-01-13 14:44] VITALS: BP 107/65; PULSE 68; RESP 16; TEMP 37.1; O2SAT 95
== END 2022-01-13 14:55 | disposition home or self-care (01) ==
LOC: SDC 12:03 → MS3 12:03
PROVIDERS: Anesthesiology; Urology; Admitting Provider Obstetrics & Gynecology; PCP Family Medicine; Referring Provider Obstetrics & Gynecology; Visit Provider Obstetrics & Gynecology
PROC: (CPT 58260; principal; 2022-01-12 07:10)
PROC: (CPT 57260; 2022-01-12 07:10)
DX: N81.4 Uterovaginal prolapse, unspecified (principal); N39.3 Stress incontinence (female) (male); N95.1 Menopausal and female climacteric states; M19.90 Unspecified osteoarthritis, unspecified site; K21.9 Gastro-esophageal reflux disease without esophagitis; Z86.19 Personal history of other infectious and parasitic diseases; Z79.899 Other long term (current) drug therapy; N95.2 Postmenopausal atrophic vaginitis; K44.9 Diaphragmatic hernia without obstruction or gangrene; N85.01 Benign endometrial hyperplasia; D27.0 Benign neoplasm of right ovary
CPT/HCPCS: 58262; 57288; 00944; 57240; 36415; 80053; 82962; 83735; 85025; 85027; 86850; 86900; 86901; 88307; 93005; 94762; 96372; 96374; 96376; 99218; J7120; A4216; C1758; G0378; J2405; J3475

== ENCOUNTER → 2022-02-07 | Outpatient (CLI) | payer OTHER, SELFPAY ==
--- NOTE | 2022-02-07 10:11 | BI_ITS ---
MAMMOGRAPHY - BILATERAL SCREENING REASON FOR EXAM: Female, 66 years old. Routine annual screening examination. PERTINENT HISTORY: Aunt with breast cancer. TECHNIQUE: Digital bilateral breast eliazar (3D mammographic acquisition) in the CC and MLO projections. 2-D mediolateral oblique (MLO) and craniocaudad (CC) views of both breasts were obtained. CAD: Full Field Digital Mammography with Computer Added Detection was performed. COMPARISON: Comparison is made with prior study 02/06/2021 and 02/05/2020. FINDINGS: Breast Composition: There are scattered areas of fibroglandular density. There are no dominant masses or suspicious calcifications. Stable small benign-appearing axillary lymph nodes. No other significant abnormalities are identified. There has been no significant change since the prior study. BI/SCRN MAMM (CAD)W/ELIAZAR BILAT IMPRESSION: Stable bilateral screening mammogram. Yearly follow-up mammogram recommended. (A) ASSESSMENT CATEGORY: BIRADS Category 2: Benign. A letter regarding these results will be sent to the patient by the facility within 30 days. Approximately 10% of breast cancers are not detected by mammography. A normal mammogram should not delay biopsy of a clinically suspicious abnormality. [id number] Electronically Signed: Yung Lo MD at 11:22 EDT ,
== END | disposition home or self-care (01) ==
LOC: OPBI 10:10
PROVIDERS: PCP Family Medicine; Referring Provider Nurse Practitioner Women's Health; Visit Provider Nurse Practitioner Women's Health
DX: Z12.31 Encounter for screening mammogram for malignant neoplasm of breast (principal)
CPT/HCPCS: 77063; 77067

== ENCOUNTER → 2023-02-11 | Outpatient (CLI) | payer OTHER, SELFPAY ==
--- NOTE | 2023-02-11 09:38 | BI_ITS ---
MAMMOGRAPHY - BILATERAL SCREENING REASON FOR EXAM: Female, 67 years old. Routine annual screening examination. PERTINENT HISTORY: Aunt with breast cancer. TECHNIQUE: Digital bilateral breast eliazar (3D mammographic acquisition) in the CC and MLO projections. 2-D mediolateral oblique (MLO) and craniocaudad (CC) views of both breasts were obtained. CAD: Full Field Digital Mammography with Computer Added Detection was performed. COMPARISON: Comparison is made with prior study dated February 07, 2022 and February 06, 2021. FINDINGS: Breast Composition: There are scattered areas of fibroglandular density. There are no dominant masses or suspicious calcifications. Stable small benign-appearing bilateral axillary lymph nodes. No other significant abnormalities are identified. There has been no significant change since the prior study. BI/SCRN MAMM (CAD)W/ELIAZAR BILAT IMPRESSION: Stable bilateral screening mammogram. Yearly follow-up mammogram recommended. (A) ASSESSMENT CATEGORY: BIRADS Category 2: Benign. A letter regarding these results will be sent to the patient by the facility within 30 days. Approximately 10% of breast cancers are not detected by mammography. A normal mammogram should not delay biopsy of a clinically suspicious abnormality. [id number] Electronically Signed: Yung Lo MD at 10:47 EDT ,
== END | disposition home or self-care (01) ==
LOC: OPBI 09:36
PROVIDERS: PCP Family Medicine; Referring Provider Nurse Practitioner Women's Health; Visit Provider Nurse Practitioner Women's Health
DX: Z12.31 Encounter for screening mammogram for malignant neoplasm of breast (principal)
CPT/HCPCS: 77063; 77067

== ENCOUNTER → 2023-02-12 | Outpatient (CLI) | payer OTHER, SELFPAY ==
[2023-02-12 07:55] LABS: Absolute Neutrophil Count 3.4 X10^3/uL (2.0-7.7); Basophil# 0.03 X10^3/uL; Basophil% 0.6 % (0-1); Eosinophil# 0.08 X10^3/uL; Eosinophils% 1.6 % (0-5); Hematocrit 43.2 % (37-47); Lymphocyte % 18.2 % (19-41); Mean Corp Hgb Conc 32.4 g/dL (32-36); Mean Corpuscular Hgb 31.1 pg (27.0-32.0); Mean Platelet Vol. 10.1 fl (6.2-12.0); Monocyte# 0.56 X10^3/uL; Monocyte% 11.3 % (0-10); NRBC Flagged by Analyzer 0 % (0-5); Neutrophil # 3.36 X10^3/uL (2.7-7.7); Neutrophil % 68.1 % (47-70); Platelet Count 230 K/mm3 (150-450); RBC Distribution Width CV 12.7 % (11.6-14.6); RBC Distribution Width SD 44.7 fl (35.1-43.9); White Blood Count 4.9 K/mm3 (4.4-11.0)
[2023-02-12 08:26] LABS: Vitamin D,25 Hydroxy 32.6 ng/mL
[2023-02-12 09:08] LABS: Cholesterol 192 mg/dL (200); Glucose 85 mg/dL (74-106); High Density Lipoprotein 72 mg/dL; Thyroid Stim Hormone (TSH) 1.78 uIU/mL (0.358-3.74); Triglycerides 75 mg/dL; Very Low Density Lipoprotein 15 mg/dL (5-40)
== END | disposition home or self-care (01) ==
LOC: LAB 07:12
PROVIDERS: PCP Family Medicine; Referring Provider Nurse Practitioner Women's Health; Visit Provider Nurse Practitioner Women's Health
DX: Z13.21 Encounter for screening for nutritional disorder (principal); R53.83 Other fatigue; N93.9 Abnormal uterine and vaginal bleeding, unspecified; Z13.1 Encounter for screening for diabetes mellitus; Z13.220 Encounter for screening for lipoid disorders; Z13.29 Encounter for screening for other suspected endocrine disorder
CPT/HCPCS: 36415; 80061; 82306; 82947; 84443; 85025

== ENCOUNTER → 2024-02-03 | Outpatient (CLI) | payer OTHER, SELFPAY ==
--- NOTE | 2024-02-03 11:05 | RAD_ITS ---
STUDY: X-RAY - RIGHT KNEE REASON FOR EXAM: Female, 68 years old. Pain. TECHNIQUE: 4 view(s) of the knee. COMPARISON: June 15, 2015 FINDINGS: Osteopenia. Progression of medial compartmental arthrosis with increased osteophytes. Stable lateral compartmental arthrosis with small osteophytes. Stable moderate patellofemoral compartmental arthrosis with osteophyte formation. Small joint effusion. RAD/Knee 4 or More Views IMPRESSION: Osteopenia with progression of medial compartmental arthrosis. No acute abnormality. Electronically Signed: Fili Nieto MD at 9:42 EDT ,
--- NOTE | 2024-02-03 11:05 | RAD_ITS ---
INDICATION: PAIN EXAMINATION/TECHNIQUE: X-RAY - LEFT XR Knee Complete 4 Views or More 4 VIEWS COMPARISON: No relevant prior comparison study available FINDINGS: SOFT TISSUES: No soft tissue swelling or gas. No radiopaque foreign body. BONES/JOINTS: No evidence of acute fracture. No joint effusion is seen. Mild narrowing of the medial joint compartment. No sclerotic or destructive changes observed. RAD/Knee 4 or More Views IMPRESSION: No evidence for acute fracture or dislocation. Mild degenerative arthrosis. Electronically Signed: Trino Mcfarlane MD at 10:21 EDT ,
== END | disposition home or self-care (01) ==
PROVIDERS: PCP Family Medicine; Referring Provider Family Medicine; Visit Provider Family Medicine
DX: M25.561 Pain in right knee (principal); M25.562 Pain in left knee
CPT/HCPCS: 73564

== ENCOUNTER → 2024-02-17 | Outpatient (CLI) | payer OTHER, SELFPAY ==
--- NOTE | 2024-02-17 12:13 | BI_ITS ---
MAMMOGRAPHY - BILATERAL SCREENING REASON FOR EXAM: Female, 68 years old. Routine annual screening examination. PERTINENT HISTORY: Aunt with breast cancer. TECHNIQUE: Digital bilateral breast eliazar (3D mammographic acquisition) in the CC and MLO projections. 2-D mediolateral oblique (MLO) and craniocaudad (CC) views of both breasts were obtained. CAD: Full Field Digital Mammography with Computer Added Detection was performed. COMPARISON: Comparison is made with prior study dated February 11, 2023 and February 07, 2022. FINDINGS: Breast Composition: There are scattered areas of fibroglandular density. There are no dominant masses or suspicious calcifications. Stable small benign-appearing bilateral axillary lymph nodes. No other significant abnormalities are identified. There has been no significant change since the prior study. BI/SCRN MAMM (CAD)W/ELIAZAR BILAT IMPRESSION: Stable bilateral screening mammogram. Yearly follow-up mammogram recommended. (A) ASSESSMENT CATEGORY: BIRADS Category 2: Benign. A letter regarding these results will be sent to the patient by the facility within 30 days. Approximately 10% of breast cancers are not detected by mammography. A normal mammogram should not delay biopsy of a clinically suspicious abnormality. [id number] Electronically Signed: Yung Lo MD at 12:57 EDT ,
== END | disposition home or self-care (01) ==
LOC: OPBI 12:13
PROVIDERS: PCP Family Medicine; Referring Provider Nurse Practitioner Women's Health; Visit Provider Nurse Practitioner Women's Health
DX: Z12.31 Encounter for screening mammogram for malignant neoplasm of breast (principal)
CPT/HCPCS: 77063; 77067

== ENCOUNTER 2024-07-23 03:59 | Emergency (ER) | payer OTHER, SELFPAY ==
[2024-07-23 03:59] VITALS: BP 123/73; PULSE 89; RESP 16; TEMP 36.7; O2SAT 100; BMI 24.0
--- NOTE | 2024-07-23 04:16 | CT_ITS ---
PROCEDURE: ABDOMEN/PELVIS WITHOUT CONT REASON FOR EXAM: Kidney stone TECHNIQUE: Abdomen and pelvis CT without intravenous contrast. IV CONTRAST: COMPARISON: None. FINDINGS: The streaky changes at the lung bases. There is no pleural or pericardial effusion. There is no free air within the abdomen and pelvis. The unenhanced liver is within normal limits. Tiny granuloma is present within the spleen. The spleen is otherwise unremarkable. The unenhanced adrenals, pancreas are within normal limits. There is no evidence of hydronephrosis obstructive uropathy bilaterally clear the urinary bladder is decompressed. The prostate is nonenlarged. Moderate to large amount of stool is seen throughout the colon. There is no evidence of bowel obstruction. The appendix is not definitively visualized. No abnormal free fluid seen within the abdomen or pelvis. No large retroperitoneal adenopathy is present. No acute osseous abnormality seen. CT/Abdomen/Pelvis without Cont IMPRESSION: Limited due to lack of oral or IV contrast. Fequkwcs-ek-sahoc amount of stool seen throughout the colon. No bowel obstruct ion. No definite evidence of hydronephrosis or obstructive uropathy seen bilaterally . One or more dose reduction techniques were used (e.g., Automated exposure contr ol, adjustment of the mA and/or kV according to patient size, use of iterative reconstruction technique). Reading Location: [id number]
--- NOTE | 2024-07-23 04:16 | EX.ED.DYSGE1 ---
HPI History of Present Illness Chief Complaint: Flank Pain Informant: patient Narrative Narrative: Presents nontraumatic worsening back pain rating down her right side after awakening yesterday morning. Constant. No pain down the legs. No urinary symptoms. No nausea or vomiting. No fevers. No history of kidney stones. History of hiatal hernia on dxex-uwi-sjhqagg medicines. Hysterectomy in the past with bladder lift in the past. Denies history of gastric ulcers or kidney injury. She is taking Tylenol with no relief. Prior similar symptoms: No PFSH PFSH Medical History Stress incontinence Wears glasses Wears partial dentures Wears dentures Abrasion Bladder disease Low iron Hepatitis History of diverticulitis History of IBS Gastric reflux Non-smoker Genetic testing of female steroid injection in knee Hiatal hernia Arthritis Home Medications ?Medication ?Instructions ?Recorded ?Last Taken ?Type B-complex with vitamin C 1 tab PO QDAY 11/22/17 Unknown History multivitamin,qd-uslj-alxfktaf 1 tab PO QDAY 11/22/17 Unknown History (Complete Multivitamin tablet) famotidine 20 mg tablet 20 mg PO BID 05/25/19 01/12/22 06:12 History acyclovir 400 mg tablet 200 mg PO BID PRN Cold Sores 08/07/21 Unknown History estradiol 0.01% (0.1 mg/gram) 0.1 appful vaginal TUTH 01/05/22 Unknown History vaginal cream simethicone 80 mg chewable tablet 80 mg PO PRN PRN Gastric Reflux 01/05/22 Unknown History mupirocin 2 % topical ointment 1 applic topical BID 02/17/24 Unknown History diazepam 2 mg tablet (Valium) 2 mg PO TID PRN muscle spasm #20 07/23/24 Unknown Rx tabs Allergy/AdvReac Type Severity Reaction Status Date / Time ibuprofen (From Motrin) AdvReac Mild Upset Verified 07/23/24 04:04 Stomach Family History Mother Cancer uterine Sister Diabetes Lupus Father Heart disease Brother Cancer prostate colon Son [place] sarcoma Aunt Breast cancer Surgical History History of right salpingo-oophorectomy History of total vaginal hysterectomy (TVH) Hx of colonoscopy History of ovarian cystectomy H/O tubal ligation History of tonsillectomy Hx of cholecystectomy Social History Smoking Status: Never smoker alcohol intake: never substance use type: does not use caffeine: No what type of physical activity do you participate in: walking frequency: daily seatbelt use: always do you feel safe at home: Yes additional social history: [place]- Retired Patient works at [employer] ROS ED Constitutional Constitutional ED: Denies chills, fever(s) or sweats ENT ENT ED: Denies sore throat Cardiovascular Cardiovascular: Denies chest pain, leg edema, palpitations or racing heartbeat Respiratory/Chest Respiratory/Chest: Denies cough, dyspnea or dyspnea on exertion Gastrointestinal Gastrointestinal: Denies abdominal pain, diarrhea, nausea or vomiting Genitourinary Genitourinary ED: Denies dysuria, hematuria or urinary frequency Musculoskeletal Musculoskeletal: Reports back pain; Denies extremity pain or neck pain Integumentary Denies rash or wounds Neurologic Neurologic: Denies headache(s), paresthesias or weakness EXAM Physical Exam Const Vital Signs: 07/23/24 03:59 07/23/24 06:06 07/23/24 06:29 Temperature 98.0 F 98.1 F Temperature Source Temporal Pulse Rate 89 80 80 Respiratory Rate 16 18 18 Blood Pressure 123/73 H 115/70 115/70 Blood Pressure Mean 89 85 85 Pulse Ox 100 98 98 Oxygen Delivery Method Room Air Room Air Positive well nourished and well developed Constitutional Narrative: Nontoxic General Appearance ED: well developed HEENT Reports moist mucous membranes normocephalic and atraumatic Eyes General Eye ED: Yes normal appearance of both eyes Neck full ROM Chest Wall Chest: Negative for tenderness Resp normal respiratory effort and normal air movement Effort and Inspection: symmetric chest movement; Negative for respiratory distress Cardio regular rate, regular rhythm and no murmurs Peripheral Pulses: pulses 2+ throughout GI normal to inspection, nondistended, normoactive bowel sounds and non-tender Palpation: Negative for guarding or rebound tenderness present Back/Spine Negative for no CVA tenderness Back/Spine Narrative: Tenderness lower midline lumbar and right flank. No rash. Extremity normal to inspection General Extremety ED: Negative for edema or tenderness General Extremity: Negative for edema Neuro oriented x3 and no sensory deficits noted Sensorium / Orientation: awake and alert Skin no rashes or lesions noted and no wounds MDM MDM MDM Narrative Medical decision making narrative: Interventions / MDM: Differential diagnosis: Back pain, hematuria Diagnosis considered but do not suspect: No cauda equina symptoms. Kidney stones however CT negative. My EKG interpretation: N/A Imaging independently reviewed and interpreted by myself: CT abdomen pelvis: Stool seen throughout the colon. No hydronephrosis. External documents reviewed: N/A Test considered but not ordered:N/A ED course: Patient uncomfortable walking, no pain down the legs no cauda equina symptoms. IV established for labs and urine. Noncontrast flank CT for further evaluation. Patient ordered for IV Toradol. She does not want any further pain medicines at this time. Evaluation improving symptom. CT scan negative hydronephrosis or any obstructive process. Reports stool throughout the colon however patient does report daily bowel movements. Urine with hematuria. She does follow Dr. Larios with her bladder lift and reported polyps in her bladder in the past. She does not smoke. She referred back to her urologist. Patient states that he was asleep, she cannot tolerate NSAIDs orally. Discussed potential steroids however she is concerned also can cause GI upset with discussed side effects. She is willing to use muscle relaxers as pain worse with movement. Low-dose Valium 2 mg started in the ED. Prescription sent as mets to bed. Should continue Tylenol. Outpatient follow-up. All questions were answered. Re-evaluation: stable Disposition discussed with patient/family/significant other: Patient Case discussed with consulting clinician: N/A This note was generated with [employer] dictation software. It may contain incorrect words, spelling, and punctuation that were not noted in checking the note before signing. Lab Data Labs: Laboratory Results - last 24 hr 07/23/24 07/23/24 04:05 04:14 WBC 10.5 RBC 4.36 Hgb 13.5 Hct 40.5 MCV 92.9 MCH 31.0 MCHC 33.3 RDW Std Deviation 45.1 H RDW Coeff of Ramy 13.2 Plt Count 208 MPV 10.6 Immature Gran % (Auto) 0.600 Neut % (Auto) 83.8 H Lymph % (Auto) 7.7 L [place] % (Auto) 7.6 Eos % (Auto) 0.1 Baso % (Auto) 0.2 Absolute Neuts (auto) 8.8 H Absolute Lymphs (auto) 0.81 L Nucleated RBC % 0 Sodium 136 Potassium 3.9 Chloride Direct 102 Carbon Dioxide 21.6 L Anion Gap 12 BUN 11 Creatinine 0.6 Estim Creat Clear Calc 52.49 Est GFR (MDRD) Non-Af 99 BUN/Creatinine Ratio 19.2 Glucose 114 H Calcium 9.5 Urine Color Yellow Urine Clarity Clear Urine pH 7.0 Ur Specific [place] 1.010 Urine Protein 15 H Urine Glucose (UA) Normal Urine Ketones 50 H Urine Occult Blood 25 H Urine Nitrite Negative Urine Bilirubin Negative Urine Urobilinogen 4 H Ur Leukocyte Esterase 100 H Urine RBC 5-10 SEEN Urine WBC 0 SEEN Ur Squamous Epith Cells 0 SEEN Urine Bacteria 0 SEEN Urine Mucus 0 SEEN Radiography Diagnostic Testing: Clinical Impression(s) from Imaging Studies Abdomen/Pelvis CT 07/23/24 04:16 IMPRESSION: Limited due to lack of oral or IV contrast. Immwfper-gr-haopj amount of stool seen throughout the colon. No bowel obstruction. No definite evidence of hydronephrosis or obstructive uropathy seen bilaterally. One or more dose reduction techniques were used (e.g., Automated exposure control, adjustment of the mA and/or kV according to patient size, use of iterative reconstruction technique). Reading Location: [facility] Discharge Plan Triage Chief Complaint: Flank Pain ED Provider: Javier Cavanaugh Dx/Rx/DC Orders Clinical Impression: Lumbar strain, Hematuria Instructions: Understanding Lumbosacral Strain, ED Hematuria Prescriptions: New diazepam [Valium] 2 mg tablet 2 mg PO TID PRN (Reason: muscle spasm) Qty: 20 0RF No Action multivitamin,if-cjyt-jmbnuccn [Complete Multivitamin] tablet 1 tab PO QDAY B-complex with vitamin C tablet 1 tab PO QDAY acyclovir 400 mg tablet 200 mg PO BID PRN (Reason: Cold Sores) famotidine 20 mg tablet 20 mg PO BID mupirocin 2 % ointment 1 applic topical BID simethicone 80 mg Tablet,Chewable 80 mg PO PRN PRN (Reason: Gastric Reflux) estradiol 0.01 % (0.1 mg/gram) cream 0.1 appful VAGINAL TUTH Primary Care Provider: Karthik Duque Referrals: Kae Larios MD [Med Staff - Active Staff] - 1 Week Karthik Duque MD [Primary Care Provider] - 1 Week Activity Restrictions/Additional Instructions: CT scan with no kidney stones. Urine with hematuria. Continue Tylenol up to 1 g every 6 hours. Use Valium as prescribed as needed. Follow-up with your doctors. Print Language: Yi Disposition Disposition: Home, Self Care Discharge Date/Time: 07/23/24 06:30
[2024-07-23] MEDS: Ketorolac 15 MG/ML Vial IV (04:22)
[2024-07-23 04:32] LABS: Bacteria 0 SEEN /hpf (None Seen); Mucous, Urine 0 SEEN /hpf (<or=2+); Squamous Epithelial Cells - UA 0 SEEN /hpf (5-10); White Blood Cells 0 SEEN /hpf (0-5)
[2024-07-23 04:34] LABS: Absolute Lymphocyte Count 0.81 X10^3/uL (0.83-4.51); Absolute Neutrophil Count 8.8 X10^3/uL (2.0-7.7); Basophil# 0.02 X10^3/uL; Basophil% 0.2 % (0-1); Eosinophil# 0.01 X10^3/uL; Eosinophils% 0.1 % (0-5); Hematocrit 40.5 % (37-47); Hemoglobin 13.5 g/dL (12.0-15.0); Lymphocyte # 0.81 X10^3/ul (0.83-4.51); Lymphocyte % 7.7 % (19-41); Mean Corp Hgb Conc 33.3 g/dL (32-36); Mean Corpuscular Volume 92.9 fL (81-99); Mean Platelet Vol. 10.6 fl (6.2-12.0); Monocyte# 0.79 X10^3/uL; Monocyte% 7.6 % (0-10); NRBC Flagged by Analyzer 0 % (0-5); Neutrophil # 8.77 X10^3/uL (2.7-7.7); Neutrophil % 83.8 % (47-70); Platelet Count 208 K/mm3 (150-450); RBC Distribution Width CV 13.2 % (11.6-14.6); RBC Distribution Width SD 45.1 fl (35.1-43.9); Red Blood Count 4.36 M/mm3 (4.2-5.4); White Blood Count 10.5 K/mm3 (4.4-11.0)
[2024-07-23 04:37] LABS: Color, Urine Yellow (Yellow); Glucose, Dipstick Normal (Normal); Ketone-Dipstick 50 mg/dl (Negative); Leukocyte Esterase-Dipstick 100 /ul (Negative); Nitrite-Dipstick Negative (Negative); Occult Blood-Urine 25 /ul (Negative); Protein-Dipstick 15 mg/dl (Negative); Urine Bilirubin Dipstick Negative (Negative); Urine Clarity Clear (Clear); Urine Urobilinogen 4 mg/dl (Normal)
[2024-07-23 04:51] LABS: Anion Gap 12 (5-15); BUN 11 mg/dL (4-19); BUN/Creat Ratio 19.2 RATIO (10-20); Calcium 9.5 mg/dL (7.6-11.0); Carbon Dioxide 21.6 mmol/L (22.0-29.0); Chloride 102 mmol/L (96-108); Creatinine, Serum 0.6 mg/dL (0.6-1.0); EST Glomerular Filtration Rate 99 (>60); Estimated Creatinine Clearance 52.49 ml/min; Glucose 114 mg/dL (70-99); Potassium 3.9 mmol/L (3.3-5.1); Sodium Level 136 mmol/L (133-145)
[2024-07-23 04:57] LABS: Red Blood Cells-Urine 5-10 SEEN /hpf (0-5)
[2024-07-23] MEDS: diazePAM 2 MG Tablet PO (05:49)
[2024-07-23 06:06] VITALS: BP 115/70; PULSE 80; RESP 18; O2SAT 98
[2024-07-23 06:29] VITALS: BP 115/70; PULSE 80; RESP 18; TEMP 36.7; O2SAT 98
== END 2024-07-23 06:30 | disposition home or self-care (01) ==
PROVIDERS: Emergency Provider Emergency Medicine; PCP Family Medicine; Visit Provider Emergency Medicine
DX: S39.012A Strain of muscle, fascia and tendon of lower back, initial encounter (principal); N20.0 Calculus of kidney; R31.9 Hematuria, unspecified; K21.9 Gastro-esophageal reflux disease without esophagitis; X58.XXXA Exposure to other specified factors, initial encounter
CPT/HCPCS: 74176; 80048; 81001; 85025; 87086; 87088; 96374; 99284; A4216

== ENCOUNTER → 2024-08-04 | Outpatient (CLI) | payer OTHER, SELFPAY ==
--- NOTE | 2024-08-04 07:54 | CT_ITS ---
PROCEDURE: EXTREMITY LOWER WITHOUT CONTRA REASON FOR EXAM: PAIN IN RIGHT KNEE Luis Antonio protocol for right knee replacement. TECHNIQUE: Multiple axial tomographic images of the right hip joint, knee joint and ankle joint were obtained. Coronal and sagittal reconstruction was obtained as well. COMPARISON: None. FINDINGS: Bones: No evidence of fracture. Joints: Mild degree of joint space narrowing of the right hip joint. Moderate to marked degree of joint space narrowing involving the medial compartment of the knee joint as well as the patellofemoral joint with degenerative spur formation. Subchondral cystic change in the lateral aspect of the medial tibial plateau measuring 11.1 mm. Imaging of the ankle joint was obtained. No significant abnormality is seen. Soft Tissues: Unremarkable. CT/Extremity Lower without Contra IMPRESSION: Ilukbydk-zz-pvuokl degree of degenerative changes/osteoarthritis of the medial compartment of the knee joint as well as the patellofemoral joint. 11.1 mm cyst in the subchondral region of the lateral aspect of the medial tibi al plateau. One or more dose reduction techniques were used (e.g., Automated exposure contr ol, adjustment of the mA and/or kV according to patient size, use of iterative reconstruction technique). Reading Location: [facility]
== END | disposition home or self-care (01) ==
PROVIDERS: PCP Family Medicine; Referring Provider Specialist; Visit Provider Specialist
DX: M25.561 Pain in right knee (principal); M21.161 Varus deformity, not elsewhere classified, right knee
CPT/HCPCS: 73700

== ENCOUNTER → 2024-08-14 | Outpatient (CLI) | payer OTHER, SELFPAY ==
--- NOTE | 2024-08-14 11:15 | RAD_ITS ---
PROCEDURE: CHEST PA AND LATERAL (RADCXR), 08/14/2024 REASON FOR EXAM: CONTINUOUS COUGH TECHNIQUE: PA and lateral views of the chest were obtained. COMPARISON: None FINDINGS: Heart: Unremarkable. Mediastinum: Unremarkable. Lungs/pleura: No focal consolidation. No pleural effusion or visible pneumothorax.. Likely calcified granulomas on the LEFT. Bones: Mild thoracolumbar dextroscoliosis. Suspected demineralization. Multilevel spondylosis. Lines and support devices: None. Other: RIGHT upper quadrant surgical clips. RAD/Chest PA and Lateral IMPRESSION: 1. No visible acute cardiopulmonary findings 2. Additional description as above. Reading Location: [id number]
[2024-08-14 16:30] LABS: Absolute Lymphocyte Count 1.32 X10^3/uL (0.83-4.51); Absolute Neutrophil Count 4.5 X10^3/uL (2.0-7.7); Basophil# 0.06 X10^3/uL; Basophil% 0.9 % (0-1); Eosinophil# 0.05 X10^3/uL; Eosinophils% 0.8 % (0-5); Hematocrit 39.8 % (37-47); Hemoglobin 12.9 g/dL (12.0-15.0); Lymphocyte # 1.32 X10^3/ul (0.83-4.51); Lymphocyte % 20.4 % (19-41); Mean Corp Hgb Conc 32.4 g/dL (32-36); Mean Corpuscular Hgb 30.5 pg (27.0-32.0); Mean Corpuscular Volume 94.1 fL (81-99); Mean Platelet Vol. 10.7 fl (6.2-12.0); Monocyte# 0.54 X10^3/uL; Monocyte% 8.4 % (0-10); NRBC Flagged by Analyzer 0 % (0-5); Neutrophil # 4.48 X10^3/uL (2.7-7.7); Neutrophil % 69.3 % (47-70); Platelet Count 288 K/mm3 (150-450); RBC Distribution Width CV 13.2 % (11.6-14.6); RBC Distribution Width SD 45.1 fl (35.1-43.9); Red Blood Count 4.23 M/mm3 (4.2-5.4); White Blood Count 6.5 K/mm3 (4.4-11.0)
== END | disposition home or self-care (01) ==
LOC: MTLAB 11:15
PROVIDERS: PCP Family Medicine; Referring Provider Family Medicine; Visit Provider Family Medicine
DX: R05.9 Cough, unspecified (principal)
CPT/HCPCS: 36415; 71046; 85025

== ENCOUNTER 2024-08-24 05:21 | Day surgery (SDC) | payer OTHER, SELFPAY ==
--- NOTE | 2024-08-04 07:37 | EKG12_ITS ---
Test Reason : PRE OP Blood Pressure : */* mmHG Vent. Rate : 69 BPM Atrial Rate : 69 BPM P-R Int : 146 ms QRS Dur : 84 ms QT Int : 374 ms P-R-T Axes : 74 55 57 degrees QTcB Int : 400 ms Normal sinus rhythm Normal ECG Confirmed by William Barriga ([id number]), features editor JOSE CADENA ([id number]) on 08/05/2024 5:45:30 AM Referred By: Andriy Flores Confirmed By: William Barriga
[2024-08-04 09:47] LABS: Albumin, Serum 4.3 g/dL (3.4-4.8); Magnesium 2.3 mg/dL (1.5-2.2)
--- NOTE | 2024-08-18 09:35 | PCM.HP.BLA ---
History and Physical History and Physical Patient Name: Paty BarrDOB: 1955 From: DATE OF PRE-OPERATIVE EXAM: 08/17/2024 DATE OF SURGERY: 08/24/2024 SCHEDULED PROCEDURE: Robotic assisted right total knee arthroplasty HISTORY OF PRESENT ILLNESS: Patient is a 69-year-old female presenting for preop visit for robotic assisted right total knee arthroplasty. Patient states that her pain started in 2007. Patient states that her pain is constant, dull, aching, sharp, stabbing, sore, and locks up. Patient states that doing stairs, walking, sitting for extended periods, and kneeling make her pain worse. Patient states that sitting for short period of time help to alleviate her pain. Patient states that she has tried rest, elevation, cortisone injection, compression, and oral medications with help. Patient states that she has tried ice, heat, weight loss, home exercise, chiropractor with no help. Patient states that she has not tried physical therapy, or gel injection. Patient states oral medication she uses Tylenol. Patient states that she has lost 5 pounds. Patient states that she has used a brace for this knee in the past. Patient denies any previous surgery on affected joint. The patient ceased estrogen therapy in anticipation of knee replacement surgery. REVIEW OF SYSTEMS: Review Of Systems: Constitutional: Denies change in appetite, fever and weight change. Cardiovasular: Denies chest pain, heart murmur and irregular heartbeat. Respiratory: Denies cough, pneumonia, shortness of breath, tuberculosis and wheezing. Gastrointestinal: Denies constipation, diarrhea, heartburn, nausea, rectal itching, bloody stools and vomiting. Genitourinary: . (F Genital Sx) . (Urinary Sx) Musculoskeletal: Denies leg swelling, pain, trouble walking and weakness. Skin: Denies Raynaud's, history of shingles and tattoo. Neurological: Denies ambulatory dysfunction, dizziness, numbness/tingling and tremor. Psychiatric: Denies anxiety, insomnia and stress. Hematologic/Lymphatic: Denies anemia, bleeding/bruising tendency and past transfusion. Reviewed, no changes. PAST MEDICAL HISTORY: Advance Care Plan: No Advance Directives Effective Date: 02/28/2024 Past Medical History: Medical Problems: Acid Reflux - (10/2023) Arthritis - (01/2024) Accidents: None Surgical Hx: Appendectomy - (1972) Gallbladder - (02/1989) in 1993 had a (ERCP) remove gallstone from bileduct Hysterectomy - (12/2021) Tonsillectomy - (1974) Tubal Ligation - (04/1983) Anesthesia Complications: None Assistive Devices: None Reviewed, no changes. SOCIAL HISTORY: Social History: Marital: .Occupation: [employer].Work Status: Currently Working.Hand Dominance: Right-handed. Personal Habits: Tobacco Use: Patient has never smoked.Cigarette Use: Never Smoked Cigarettes.Smokeless Tobacco: Never Used Smokeless Tobacco.E-Cigarette Use: Never used.Alcohol: Denies use.Drug Use: Denies Use.Enjoy Exercising: Daily. Reviewed, no changes. VITALS: Ht: 63 Wt: 120lb Wt k.432 BMI: 21.3 BP: 120/66 Pulse: 68 Resp: 16 T: 97.7 T: 36.5C Pain Level: 3 O2SatR: 96 ALLERGIES: Ibuprofen MEDICATIONS: Oxycodone HCL 5 mg 1-2 tab by mouth every 4 hours, Acyclovir 200 mg/5ml one tablet only when needed for cold sores, Fiber 625 mg two daily, Multi Vitamin Daily multi vitiam, Metamucil 4 In 1 Fiber 51.7 % daily, Clobetasol Propionate 0.05 % daily only when needed, Mupirocin 2 % twice daily only when needed, Famotidine 20 mg 1 tablet twice daily, Vitamin D3 25 mcg (1000 Ut) once tablet daily, Simethicone 125 mg three capsules only ehen needed, Levofloxacin 500 mg daily PRE-OP EXAM: General appearance:NORMAL Other: Eyes: Conjunctivae and lids: NORMAL Pupils: ERR Ears, Nose, Mouth, and Throat: NORMAL Other: Inspection of lips, teeth and gums: NORMAL Other: Neck: Examination of neck: no masses noted. Respiratory: Assessment of respiratory effort: NORMAL Other: Auscultation of lungs: clear to auscultation no wheezes, rhonchi or rales. Cardiovascular: Auscultation of heart: regular rate and rhythm, no murmurs, gallops or rubs. Exam of carotid arteries: NORMAL Other: Gastrointestinal: Exam of abdomen: soft, nontender, nondistended bowel sounds present. Lymphatic: Palpation of nodes in neck: NORMAL Other: Palpation of nodes in Axillae: NORMAL Other: Neurological: see below Psychiatric: Orientation to time, place and person: NORMAL Other: Mood and affect: NORMAL Other: PHYSICAL EXAMINATION: - Musculoskeletal- Right knee correctable varus alignment, moderate effusion; 3 mm medial collateral ligament laxity, 1 mm lateral collateral ligament laxity; intact skin, no redness; range of motion 10 to 120 degrees with pain on flexion IMAGING STUDIES: - X-rays (02/03/2024): - Left Knee: Patellofemoral arthritis - Right Knee: Severe arthritis, 100% [id number] medial joint space narrowing, subchondral sclerosis, bony erosions and marginal osteophytes as well as lateral subluxation of the tibia. IMPRESSION: 1. Acid reflux. 2. Primary osteoarthritis of the right knee. 2. Varus deformity of the right knee. PLAN: The surgeon did discuss and review all treatment options with the patient including surgical versus nonsurgical. At this time the patient does wish to proceed with the above-stated procedure. Potential risks benefits and complications of the procedure were discussed and reviewed with the patient including but not limited to , infection, nerve and blood vessel damage, persistent pain, numbness, tingling, paresthesias, blood clot, pulmonary embolism, in the requirement for possible further surgery. Patient expressed full understanding. Has no further questions for the doctor. Does agree to proceed with the above-stated procedure, and has signed the appropriate surgery consent form. DVT prophylaxis: Patient will be on aspirin 81 mg twice daily until 4 weeks postoperatively. Pain medications: Patient will be on Tylenol 1000 mg every 8 hours for pain as well as oxycodone as needed. Patient will be on famotidine for 30 days postoperatively. Patient will be on senna for constipation. Patient does not tolerate anti-inflammatories or meloxicam due to acid reflux. ___ I have re-examined the patient. There are no clinical changes since date of exam. ___ See progress notes for changes. ___ Dictated on admission Date: Time: Signature:
[2024-08-24] VITALS (13 sets, daily range): BP systolic 100–136; BP diastolic 59–81; PULSE 72–92; RESP 11–18; TEMP 36.1–36.5; O2SAT 98–100; BMI 22.2
[2024-08-24] MEDS: Lactated Ringers 1,000 ML 999 ML IV (06:20)
[2024-08-24] MEDS: Magnesium 1 GM over 15 mins IV (06:21)
[2024-08-24] MEDS: Lactated Ringers 1,000 ML 75 ML IV (06:22)
[2024-08-24] MEDS: Celecoxib 200 MG Capsule 400 MG PO (06:28)
[2024-08-24] MEDS: Acetaminophen 500 MG Tablet 1000 MG PO (06:28)
[2024-08-24] MEDS: Gabapentin 600 MG Tablet PO (06:29)
--- NOTE | 2024-08-24 06:41 | PCM.PRE.AN2 ---
ASA Classification* ASA Classification ASA Classification: 2 Assessment & Plan Anesthesia* Anesthesia Assessment Anesthesia Assessment: Discussed sedation and/or anesthesia options, risks, benefits, and alternatives with patient/parents/legal guardian/POA. Questions invited. The patient/parents/legal guardian/POA seems to understand and agrees to proceed with anesthesia plan. Reviewed the physical assessment, medical history, allergy history and patient home medications list prior to surgery/procedure/anesthetic and documented any changes. Performed airway and anesthesia risk assessments. Anesthesia Type Anesthesia Type: Spinal and Block Anesthesia Focused Assessment* Temperature: 97.1 F Pulse Rate: 72 Blood Pressure: 136/81 Respiratory Rate: 16 Pulse Ox: 100 Airway Assessment Mouth opens: >3 cm Mallampati Score: II Focused Labs Anesthesia Preop lab: CBC WBC 6.5 K/mm3 (4.4-11.0) 08/14/24 11:30 08/14/24 RBC 4.23 M/mm3 (4.2-5.4) 08/14/24 11:30 08/14/24 Hgb 12.9 g/dL (12.0-15.0) 08/14/24 11:30 08/14/24 Hct 39.8 % (37-47) 08/14/24 11:30 08/14/24 Plt Count 288 K/mm3 (150-450) 08/14/24 11:30 08/14/24 CHEMISTRY Potassium 3.9 mmol/L (3.3-5.1) 07/23/24 04:05 07/23/24 Sodium 136 mmol/L (133-145) 07/23/24 04:05 07/23/24 Magnesium 2.3 mg/dL (1.5-2.2) H 08/04/24 08:17 08/04/24 BUN 11 mg/dL (4-19) 07/23/24 04:05 07/23/24 Creatinine 0.6 mg/dL (0.6-1.0) 07/23/24 04:05 07/23/24 Glucose 114 mg/dL (70-99) H 07/23/24 04:05 07/23/24 POC Glucose 92 mg/dL (74-106) 01/12/22 06:03 01/12/22 TSH 1.78 uIU/mL (0.358-3.74) 02/12/23 07:15 02/12/23 COAG Pre-Assessment Diagnosis/Proposed Procedure Planned Operative Procedure(s): ROBOTIC ASSISTED RIGHT TOTAL KNEE ARTHROPLASTY Anesthesia History Anesthesia History - sustainability executive director: Anesthesia History - sustainability executive director Hx Hospitalization No 07/29/24 09:23 Any Problems With Anesthesia No 07/29/24 09:23 Cholinesterase deficiency No 07/29/24 09:23 You/Your Family Experience No 07/29/24 09:23 fever (hyperthermia) with Relationship Recent Exposure to Contagious No 08/24/24 06:01 Disease Does patient have nerve No 07/29/24 09:23 stimulator Patient instructed to have device shut off --Does patient have Pacemaker No 08/24/24 06:03 or ICD? When Was Last Pacemaker Check QUESTION #4 FULL TEXT: You/Your Family Experience fever (hyperthermia) with Anesthesia Last Oral Intake Last Oral intake: Last Oral Intake NPO since 03:30 08/24/24 06:03 Meds taken in AM with sips of Yes 08/24/24 06:03 water? Meds patient instructed to take am of surgery PONV PONV - sustainability executive director: PONV - sustainability executive director Female Yes 07/29/24 09:23 HX of Motion Sickness No 07/29/24 09:23 HX of N/V After Surgery No 07/29/24 09:23 Non-Smoker Yes 07/29/24 09:23 Duration of Surgery greater Yes 07/29/24 09:23 than 60 minutes Number of Risk Factors 3 07/29/24 09:23 PONV Score Moderate Risk 07/29/24 09:23 Height & Weight Height & Weight: Anesthesia: Height & Weight Height 5 ft 2 in 08/24/24 06:03 Weight: 55.157 kg 08/24/24 06:03 Body Mass Index (BMI) 22.2 08/24/24 06:03 Respiratory Assessment Respiratory Assessment - sustainability executive director: Respiratory Tract Infection Hx - sustainability executive director Hx Respiratory Tract Infection No 07/29/24 09:23 STOP Sleep Apnea STOP Sleep Apnea - sustainability executive director: STOP Sleep Apnea - sustainability executive director Hx Hypertension No 07/29/24 09:23 Hx Sleep Apnea No 07/29/24 09:23 CPAP No 01/12/22 10:40 BIPAP Do you snore loudly (louder No 07/29/24 09:23 than talking or can be heard Do you often feel tired/ No 07/29/24 09:23 fatigued/ sleepy during daytime? Has anyone observed you stop No 07/29/24 09:23 breathing during sleep? STOP Results Negative 07/29/24 09:23 QUESTION #5 FULL TEXT : Do you snore loudly (louder than talking or can be heard through closed doors)? Tobacco Use History Tobacco Use History - sustainability executive director: Tobacco Use History - sustainability executive director Tobacco Use Smoking Status Never smoker 07/29/24 09:23 Hx Tobacco Use No 07/29/24 09:23 Years Smoking Packs Smoked per Day Smoking Cessation Date was within the last 15 years Hx Smoking Cessation Date Hx Smoking Cessation Counseling Hematologic Medial History Hematologic Hx - sustainability executive director: Hematologic Medical Hx - surveillance dual rate officer Hx of Blood Transfusion No 07/29/24 09:23 Hx of Transfusion in last 3 No 07/29/24 09:23 Months Date of Last Transfusion (if within last 3 months) Ever experience any problems No 07/29/24 09:23 with transfusion(s)? Specify any problems Hx of Preganancy in last 3 No 07/29/24 09:23 Months Nurse Filling Out Transfusion [email or web address] 07/29/24 09:23 & Questions: Date: 07/29/24 07/29/24 09:23 Time: 09:07/29/24 09:23 Patient unable to answer at this time (ie. confused, unrespo /Reproduction History /Reproductive History - sustainability executive director: /Reproductive Hx- sustainability executive director Hx Now Gestational Age (in weeks): EDC: Hx Hx Para Hx Section SAB No 07/29/24 09:23 Active Medications Active Medications: Current Medications Generic Name Dose Route Start Last Admin Trade Name Freq PRN Reason Stop Dose Admin Acetaminophen 1,000 mg 08/24/24 07:30 08/24/24 06:28 Acetaminophen 500 Mg Tablet PO 08/24/24 07:31 1,000 mg X1 ONE Administration Celecoxib 400 mg 08/24/24 07:30 08/24/24 06:28 Celecoxib 200 Mg Capsule PO 08/24/24 07:31 400 mg X1 ONE Administration Sodium Chloride 77.4 ml/ 0 ml 08/24/24 07:30 Ropivacaine 200 mg/ OPERA.SITE 08/24/24 07:31 Epinephrine HCl 0.6 mg/ X1 ONE Ketorolac Tromethamine 30 mg/ Morphine Sulfate 5 mg Dexamethasone Sodium Phosphate 10 mg 08/24/24 07:30 Dexamethasone 10 Mg/Ml Vial IV 08/24/24 07:31 X1 ONE Gabapentin 600 mg 08/24/24 07:30 08/24/24 06:29 Gabapentin 600 Mg Tablet PO 08/24/24 07:31 600 mg X1 ONE Administration Lactated Ringer's 1,000 mls @ 999 mls/hr 08/24/24 07:30 08/24/24 06:20 IV 08/24/24 08:30 999 mls/hr .[id number] LORI Administration Cefazolin Sodium 2 gm/ N/A 20 mls @ 400 mls/hr 08/24/24 07:30 IV 08/24/24 07:32 PREOP ONE Tranexamic Acid 1,000 mg/ 110 mls @ 660 mls/hr 08/24/24 07:30 Sodium Chloride IV 08/24/24 07:39 X1 ONE Tranexamic Acid 1,000 mg/ 110 mls @ 660 mls/hr 08/24/24 07:30 Sodium Chloride IV 08/24/24 07:39 X1 ONE Magnesium Sulfate 1 gm/ 102 mls @ 408 mls/hr 08/24/24 07:30 08/24/24 06:21 Dextrose IV 08/24/24 07:44 408 mls/hr X1 ONE Administration Lactated Ringer's 1,000 mls @ 75 mls/hr 08/24/24 05:45 08/24/24 06:22 IV 08/25/24 08:24 75 mls/hr .[id number] LORI Administration Insulin Human Lispro 1 - 6 unit 08/24/24 07:30 Insulin Lispro 100 Unit/Ml Insuln.Pen SC Q4H PRN PRN BG>/= 180, SEE PROTOCOL Protocol PFSH Medical History History of steroid therapy Bladder prolapse Stress incontinence Wears glasses Wears partial dentures Wears dentures Abrasion Bladder disease Low iron Hepatitis History of diverticulitis History of IBS Gastric reflux Non-smoker Genetic testing of female steroid injection in knee Hiatal hernia Arthritis Home Medications ?Medication ?Instructions ?Recorded ?Last Taken ?Type B-complex with vitamin C 1 tab PO QDAY 11/22/17 08/19/24 History multivitamin,ex-sosh-rgtqmgtd 1 tab PO QDAY 11/22/17 08/19/24 History (Complete Multivitamin tablet) famotidine 20 mg tablet 20 mg PO BID PRN REFLUX 05/25/19 08/24/24 03:30 History acyclovir 400 mg tablet 200 mg PO BID PRN Cold Sores 08/07/21 Unknown History estradiol 0.01% (0.1 mg/gram) 0.1 appful vaginal TUTH 01/05/22 Unknown History vaginal cream Held on 07/29/24. Instructions: UNTIL AFTER SURGERY 08/24/24 simethicone 80 mg chewable tablet 80 mg PO PRN PRN Gastric Reflux 01/05/22 08/21/24 History mupirocin 2 % topical ointment 1 applic topical BID PRN SKIN 02/17/24 08/19/24 History acetaminophen 650 mg 1,300 mg PO Q12H PRN pain 07/29/24 Unknown History tablet,extended release (8 Hour Pain Reliever) calcium polycarbophil 625 mg 1,250 mg PO DAILY 07/29/24 08/19/24 History tablet (Fiber-Tabs) cholecalciferol (vitamin D3) 25 25 mcg PO DAILY 07/29/24 08/23/24 18:00 History mcg (1,000 unit) capsule (Vitamin D3) Allergy/AdvReac Type Severity Reaction Status Date / Time ibuprofen (From Motrin) AdvReac Mild Upset Verified 08/24/24 05:59 Stomach Family History Mother Cancer uterine Sister Diabetes Lupus Father Heart disease Brother Cancer prostate colon Son Ny sarcoma Aunt Breast cancer Surgical History History of right salpingo-oophorectomy History of total vaginal hysterectomy (TVH) Hx of colonoscopy History of ovarian cystectomy H/O tubal ligation History of tonsillectomy Hx of cholecystectomy Social History Smoking Status: Never smoker alcohol intake: never substance use type: does not use caffeine: No what type of physical activity do you participate in: walking frequency: daily seatbelt use: always do you feel safe at home: Yes additional social history: [employer]- Retired Patient works at [employer] Review of Systems (Anesthesia) ROS Narrative System reviewed and no additional complaints, except as documented.
[2024-08-24 06:59] LABS: Bedside Glucose 85 mg/dL (74-106)
--- NOTE | 2024-08-24 07:04 | RAD_ITS ---
PROCEDURE: KNEE 1 OR 2 VIEWS 08/24/2024 REASON FOR EXAM: Total knee arthroplasty. TECHNIQUE: AP and lateral view(s) of the right knee COMPARISON: Knee radiographs 02/03/2024 FINDINGS: Bones: Normal bone mineralization. Joints: There has been placement of total knee arthroplasty hardware. Hardware appears well positioned and intact. No lucency around the hardware or other finding that would suggest a complication. Effusion: Small joint effusion Soft tissues: Fluid and air seen in the soft tissues Other: RAD/Knee 1 or 2 Views IMPRESSION: Total knee arthroplasty. No obvious complication. Reading Location: [facility]
--- NOTE | 2024-08-24 07:30 | KNEE_PTH ---
PATIENT: SYLVIA PRICE LOC: [facility] [place] U#:[id number] AGE/SX: 69/F ROOM: RE08/24/[address]: Dr. Andriy Flores MD : 1955 BED: DIS: 08/24/2024 SPEC #: [id number] RECD: 08/24/24 13:29 STATUS: ELIZABETH RETricia #: [id number] DRAKE: 08/24/24 07:[address]: Andriy Flores DEPT: SURGICAL PATHOLOGY RECD BY: Saran Tineo ENTERED: 08/24/24 13:29 SP TYPE: TOTAL KNEE OTHR DR: Dr. Karthik Duque MD Tissues: A - Knee, NOS Procedures: Decalcification bone/plaque Surgery Specimen Level III HEADER OPERATION: ERAS, total knee replacement robotic arm assist PRE-OP DIAGNOSIS: Primary osteoarthritis of right knee, varus deformity of right knee TISSUE SUBMITTED: A- Bone and soft tissue right knee MICROSCOPIC DIAGNOSIS A. Knee, right, primary osteoarthritis, total knee arthroplasty: * Bone and soft tissue with osteoarthritic reactive/degenerative changes. MICROSCOPIC DESCRIPTION Slides are reviewed. GROSS DESCRIPTION A. Received in formalin in a container labeled with the patient's name, date of , and bone and soft tissue right knee are multiple spears and firm fragments of bone and soft tissue consisting of, but not limited to, medial/lateral condyle and tibial plateau. The specimen measures 8.5 x 8.0 x 4.5 cm in aggregate. The resection margins are smooth and firm, and the cortical surfaces are pitted and granular with areas of smooth eburnation. Sectioning of the soft tissue reveals spears-yellow, unremarkable surfaces. Real Estate Closing Coordinator sections:A1. Soft tissueA2. Bone, following decalcification [facility] 08-24-2024 CPT:31005,17098
[2024-08-24] MEDS: Cefazolin 2 GM in Syringe 10 ML IV (07:33)
[2024-08-24] MEDS: TXA 1000mg in NS100 100ml (IVPB at Incision) 660 MG IV (07:40)
[2024-08-24] MEDS: dexAMETHasone 10 MG/ML Vial IV (07:45)
[2024-08-24] MEDS: JPS (Morphine 10mg/ml) OPERA.SITE (08:20)
[2024-08-24] MEDS: TXA 1000mg in NS100 100ml (IVPB at Closure) 660 MG IV (08:28)
--- NOTE | 2024-08-24 08:52 | OP.PCM_ITS ---
Operative Report (Standard) Operative Information Date of Procedure: 08/24/24 Pre-Operative Diagnosis: Right knee primary osteoarthritis Post-Operative Diagnosis: Right knee primary osteoarthritis Surgery/Procedure Performed: Right knee minimally invasive robotic assisted total arthroplasty body piercer: Yes Rice Field Worker: Mari Underwood Tasks completed by night assistant: Other (See body of operative report) Additional engineer second assistant?: No Type of Anesthesia: Spinal RN Documented Start/Stop Times: Operation Date: 08/24/24 07:30 Case Time Into Pre-Op 08/24/24 05:35 Anesthesia Start 08/24/24 07:33 Into Room 08/24/24 07:33 Out of Pre-Op 08/24/24 07:33 Procedure Start 08/24/24 07:53 Procedure End 08/24/24 09:38 Anesthesia End 08/24/24 09:40 Out of Room 08/24/24 09:40 Into Recovery 08/24/24 09:43 Procedure Start Time: 07:53 Procedure Stop Time: 09:38 Select all DRAINS/GRAFTS/IMPLANTS that apply: Prosthetic device Prosthetic device details: See body of operative report Special Medications: 2 g Ancef, 1 g TXA at incision, 1 g TXA closure, 10 mg Decadron, joint cocktail (5 mg Duramorph, 30 mL of 0.5% Ropivicaine, 1000 units of epinephrine, 30 mg of Toradol) Estimated Blood Loss: 75 mL Fluids Replaced: 1000 mL Specimen collected: Yes Description of specimen(s) removed: Bony cuts Description of surgery: Implants used: 1. Sherwood size 2 triathlon cruciate retaining distal femoral press-fit component 2. Sherwood size 3 press-fit tritanium tibial baseplate 3. Sherwood X3 9 mm polyethylene 4. Sherwood X3 32 mm asymmetric patella Brief history operative indications: 69-year-old F with history of right knee osteoarthritis with radiographic findings with loss of joint space, osteophyte formation and subchondral sclerosis. Failed conservative measures as mentioned in the H&P. Discussion of total knee arthroplasty as well as risk and benefits were discussed the patient including but not limited to blood loss, DVTs, PEs, neurovascular damage, general risk of anesthesia including loss of life, and stiffness or instability were discussed with patient. Patient demonstrated understanding and was able to sign informed consent. Procedure: On the date of procedure patient's right lower extremity was marked in the preoperative area. The patient was then taken back to the operating room where the patient was placed on the table in the supine position. All bony prominences were identified a well-padded. Anesthesia assumed control of the C-spine and airway and remained controlled throughout the remainder of the procedure. A tourniquet was placed on the right upper thigh and the leg was prepped in a sterile fashion. The surgeon then scrubbed at this time .Upon reentering the room right lower extremity was draped in a standard orthopedic fashion. A timeout was then called and everyone agreed upon the side, the site, the procedure to be performed, patient's identity and antibiotics given. Esmarch bandage was used to exsanguinate the extremity and the tourniquet was placed up to 250 mmHg with the knee in flexion. A midline skin incision was made and sharp dissection was taken down through skin subcutaneous tissue and fat. The standard medial parapatellar incision was made and the patella was subluxed laterally. An Appropriate deep MCL release was done and the fat pad was resected. Our attention was then directed to the patella. The patella was everted and a flat resection was made. The knee was then flexed up in 2 femoral pins were placed inside the incision and 2 tibial pins were placed outside the incision in the medial tibia bicortically. Once this was completed the 2 checkpoints in the femur and tibia were placed. Knee was then flexed up and the bony landmarks were registered. Once this was completed knee was taken through range of motion and manually stressed allowing us to a plan for an appropriate tibial cut. The robotic arm was brought into the field sterilely and checkpoint and saw were registered. Based on the patient's deformity the tibial cut was made in 2 and half degrees varus. At this time the tensioner was then placed in the joint and ligament tension was checked at 90 degrees and full extension. Based on the patient's ligamentous tension appropriate adjustments were made to the operative plan and ligament releases were done. Once we were happy with our operative plan with balanced flexion and extension gaps our attention was directed to the femur. The robot was brought into the field sterilely and registered. Posterior condylar cuts, anterior chamfer cuts and anterior cuts were appropriately made for a size 2 femur. When these were completed the saws were switched out in the distal femoral and posterior chamfer cuts were made. Protecting the soft tissue throughout this time. A size 3 tibial base plate was selected. the knee was flexed to 90 degrees and the soft tissues and posterior osteophytes were removed from the joint. 40 cc of the periarticular injection was injected into the posterior medial corner of the joint. The appropriate trials were then placed on the femur and tibia. A trial polyethylene was trialed to ensure proper balancing and stability of the knee. The appropriate tibial internal rotation was then marked with a bovie. Our attention was then directed to the patella. The lug holes were drilled and the patella trial was placed. Patellar tracking was checked and deemed appropriate. Once we were happy lug holes were drilled for the femur and trial components w ere removed. The tibia was subluxed and pinned into place and the keel was punched and drilled appropriately. Final components were verified and opened. The wound was copiously irrigated with normal saline. When the cement was ready the components were impacted into place starting with the tibia then the femur, finally the patella was compressed into place. The trial poly component was placed and the knee was placed in full extension. Once the the implants were secured, the tracking, alignment and balance were verified and a size 9 mm CS polyethylene component was placed. Once the final components were placed a 3-minute dilute Betadine lavage was performed followed by an Irrisept lavage was performed and the wound was copiously irrigated with normal saline solution and the periarticular injection was given. The wound was closed in a layer izquierdo fashion using #1 vicryl interrupted sutures for the arthrotomy, 2-0 interrupted Vicryl suture for the subcuticular layer and ck for final skin closure. A sterile compressive dressing was then placed. The patient was then awakened from anesthesia, transferred to the [facility] and transferred to the PACU for recovery. Post op plan DVT ppx: ASA 81mg BID, thigh high compression stockings Follow up: in office in 2 weeks for wound check PT: to start POD #0 at hospital, outpatient PT should be arranged. My physician engineer second assistant was a vital part of this case, they was important because there was not another skilled set of hands available to their training and aptitude needed for safe and appropriate completion of this case. They were important in appropriate retraction during the case, and protection of soft tissues during bony cuts. In particular the experience and skill of this engineer second assistant made for safe retraction and exposure during implantation of medical implants without damage to vital soft tissues or structures. His intimate knowledge of the case and my steps aided in safe and expedient completion of the procedure as well as appropriate position of the leg during the case. He was also vital in assisting with closure under my direct supervision. Due to the complexity of this case robotic arm was used to assist in the surgery to improve accuracy and clinical outcomes. Surgical Findings: Stage IV osteoarthritis. Stable knee with good patella tracking Complications Complications: No Admit VTE Documentation VTE Present on Admission: No VTE Mechan Device Prophylaxis: SCD's and Thigh High NELDA Hose VTE Pharm Prophylaxis ordered?: Yes
--- NOTE | 2024-08-24 09:44 | PCM.POST.ANE ---
Anesthesia: Postop Eval I Current Vital Signs Temperature: 97.7 F Pulse Rate: 91 Blood Pressure: 115/61 Respiratory Rate: 18 Pulse Ox: 98 Assessment Airway patent: Yes Spontaneous unlabored respirations: Yes nausea: No Vomiting: No Anesthesia Complication: No Fluid Hydration Crystalloid volume administer (ml): 1,100 Total IV fluid infused: 1,100 Progress Note Anesthesia document: Postop Eval 1 completed: Yes
--- NOTE | 2024-08-24 10:13 | POSTOPAN2_ITS ---
Anesthesia Postop Eval I Sum Postop Eval Completion status Anesthesia document: Postop Eval 1 completed: Yes Anesthesia Postop Eval I Summary Anesthesia Postop Eval I Summary: Anesthesia Postop Eval I: Assessment Summary Airway patent Yes 08/24/24 09:44 [email or web address] Spontaneous unlabored Yes 08/24/24 09:44 PARACHUTE MARKER.[email or web address] respirations Mental status nausea No 08/24/24 09:44 PARACHUTE MARKER.CSIR Vomiting No 08/24/24 09:44 PARACHUTE [email or web address].CSIR Anesthesia Postop Eval I: Fluid Summary Crystalloid volume administer 1,100 08/24/24 09:44 PARACHUTE [email or web address].CSIR (ml) Colloids volume administered ( ml) Blood Product volume administered (ml) Total IV fluid infused 1,100 08/24/24 09:44 PARACHUTE MARKER.CSIR Anesthesia Postop Eval I: Summary Notes Anesthesia Complication No 08/24/24 09:44 PARACHUTE [email or web address].CSIR Anesthesia Complication Comment: Post-operative progress note Anesthesia: Postop Eval II Evaluation Mental status: Awake Pain Level: 0 nausea: No Vomiting: No
--- NOTE | 2024-08-24 10:13 | PCM.POSTANE2 ---
Anesthesia Postop Eval I Sum Postop Eval Completion status Anesthesia document: Postop Eval 1 completed: Yes Anesthesia Postop Eval I Summary Anesthesia Postop Eval I Summary: Anesthesia Postop Eval I: Assessment Summary Airway patent Yes 08/24/24 09:44 REGIONAL EHS [email or web address] Spontaneous unlabored Yes 08/24/24 09:44 REGIONAL EHS MANAGER.CSIR respirations Mental status nausea No 08/24/24 09:44 REGIONAL EHS MANAGER.CSIR Vomiting No 08/24/24 09:44 REGIONAL EHS MANAGER.[email or web address] Anesthesia Postop Eval I: Fluid Summary Crystalloid volume administer 1,100 08/24/24 09:44 REGIONAL EHS MANAGER.CSIR (ml) Colloids volume administered ( ml) Blood Product volume administered (ml) Total IV fluid infused 1,100 08/24/24 09:44 REGIONAL EHS MANAGER.CSIR Anesthesia Postop Eval I: Summary Notes Anesthesia Complication No 08/24/24 09:44 REGIONAL EHS MANAGER.CSIR Anesthesia Complication Comment: Post-operative progress note Anesthesia: Postop Eval II Evaluation Mental status: Awake Pain Level: 0 nausea: No Vomiting: No
[2024-08-24] MEDS: Ondansetron 4 MG/2 ML Vial IV (11:15)
[2024-08-24] MEDS: oxyCODONE 5 MG Tablet PO (11:30)
--- NOTE | 2024-08-24 11:45 | SUR.PHASEII ---
PATIENT PIVOTED TO THE BEDSIDE COMMODE WITHOUT DIFFICULTY WITH ONE ASSIST AND THE USE OF HER WALKER.
[2024-08-24] MEDS: Cefazolin 1 GM/50 ML BAG IV (12:22)
[2024-08-24] MEDS: proMETHazine 25 MG/ML Syringe 12.5 MG IM (13:13)
== END 2024-08-24 14:04 | disposition home or self-care (01) ==
LOC: SDC 05:22 → AC 05:22
PROVIDERS: PCP Family Medicine; Referring Provider Specialist; Visit Provider Specialist
PROC: 0SRC0JZ Replacement of Right Knee Joint with Synthetic Substitute, Open Approach (ICD-10-PCS; CPT 27447; principal; 2024-08-24 07:00)
DX: M17.11 Unilateral primary osteoarthritis, right knee (principal); Z79.4 Long term (current) use of insulin; K21.9 Gastro-esophageal reflux disease without esophagitis; M21.161 Varus deformity, not elsewhere classified, right knee; Z79.899 Other long term (current) drug therapy
CPT/HCPCS: 27447; S2900; 01402; 64447; 36415; 73560; 82040; 82962; 83735; 87081; 88305; 88311; 93005; 97162; C1776; J2405; J3475

== ENCOUNTER → 2025-02-17 | Outpatient (CLI) | payer OTHER, SELFPAY ==
--- NOTE | 2025-02-17 16:15 | BI_ITS ---
EXAM: SCRN MAMM (CAD)W/ELIAZAR BILAT DATE: 02/17/2025 CLINICAL HISTORY: F, Age 69 y/o , SCREEN FOR BREAST CANCER Aunt with breast cancer. TECHNIQUE: Procedure Code: [id number] Modality: MG Procedure: SCRN MAMM (CAD)W/ELIAZAR BILAT COMPARISON: Prior exam(s) dated February 17, 2024.. FINDINGS: TISSUE DENSITY: There are scattered areas of fibroglandular density. Bilateral Breast Mammographic Findings: No significant masses, calcifications or other abnormalities are identified. Stable small benign-appearing bilateral axillary lymph nodes. No suspicious masses, areas of developing architectural distortion, or suspicious calcifications. There has been no significant interval change. BI/SCRN MAMM (CAD)W/ELIAZAR BILAT IMPRESSION: Stable bilateral screening mammogram. OVERALL FINAL ASSESSMENT BI-RADS 2: BENIGN RECOMMENDATION: Routine annual follow-up in 1 Year Additional Recommendation none A letter with findings and recommendations will be mailed to the patient. Reading Location: [facility]
== END | disposition home or self-care (01) ==
PROVIDERS: PCP Family Medicine; Referring Provider Nurse Practitioner Women's Health; Visit Provider Nurse Practitioner Women's Health
DX: Z12.31 Encounter for screening mammogram for malignant neoplasm of breast (principal)
CPT/HCPCS: 77063; 77067